=== PATIENT | female | born 1945 | race Caucasian/White ===

== ENCOUNTER 2020-12-18 09:21 | Inpatient (IN) | payer MEDICARE, BC ==
[2020-12-18] MEDS ORDERED: Ondansetron 4 MG/2 ML SDV IVPUSH ONE (09:53)
[2020-12-18] MEDS ORDERED: Sodium Chloride 0.9% 10 ML Syringe FLUSH PRN (09:53)
[2020-12-18] MEDS ORDERED: Albuterol/Ipratropium 3.0-0.5 MG/3 ML Neb Soln NEB ONE (09:54)
[2020-12-18] MEDS ORDERED: EPINEPHrine 1 MG/ML SDV IM PRN (09:55)
[2020-12-18] MEDS ORDERED: Famotidine 20 MG/2 ML SDV IVPUSH PRN (09:55)
[2020-12-18] MEDS ORDERED: Bamlanivimab 700 MG, ETESEVIMAB 1,400 MG in Sodium Chloride 0.9% 100 ML IV ONE (09:55)
[2020-12-18] MEDS ORDERED: methylPREDNISolone Sodium Succinate 125 MG/2 ML SDV IVPUSH PRN (09:55)
[2020-12-18] MEDS ORDERED: diphenhydrAMINE 50 MG/ML SDV IVPUSH PRN (09:55)
[2020-12-18] MEDS ORDERED: Sodium Chloride 0.9% 10 ML Syringe FLUSH SCH (10:00)
[2020-12-18] MEDS ORDERED: Sodium Chloride 0.9% 1,000 ML IV SCH ×2 (10:00→16:45)
--- NOTE | 2020-12-18 11:00 | EDM.PDOC ---
ED HPI GENERAL MEDICAL PROBLEM - General Chief Complaint: Respiratory Problem Stated Complaint: COVID+ SOB Time Seen by Provider: 12/18/20 09:29 Source of Information: Reports: Patient History Limitations: Reports: No Limitations - History of Present Illness INITIAL COMMENTS - FREE TEXT/NARRATIVE: The patient presents with COVID 19, nausea, generalized weakness and shortness of breath. She said this all started on Tuesday and she tested positive for COVID 19. She has no fever or chills any more but she has nausea and cannot eat or drink anything. She has no diarrhea. She has a cough and she is short of breath. She has no chest pain. She has a history of diabetes, hypertension and COPD. She does not smoke anymore. She is not vaccinated for COVID 19. Onset: Gradual Duration: Day(s): (4) Severity: Moderate Improves with: Reports: None Worsens with: Reports: None Associated Symptoms: Reports: Cough, Fever/Chills, Nausea/Vomiting, Shortness of Breath. Denies: Chest Pain, Headaches - Related Data Allergies Allergy/AdvReac Type Severity Reaction Status Date / Time Sulfa (Sulfonamide Allergy Swelling Verified 01/28/16 03:31 Antibiotics) Home Meds: Home Meds ALPRAZolam [Alprazolam] 1 tab PO DAILY PRN 01/28/16 [History] Albuterol [Proair HFA] 2 puff INH Q4H PRN 01/28/16 [History] Aspirin 81 mg PO DAILY 01/28/16 [History] Fluticasone Propion/Salmeterol [Advair 250-50 Diskus] 1 ampule INH DAILY 01/28/16 [History] Potassium Chloride [Klor-Con M20] 20 meq PO DAILY 01/28/16 [History] atenoloL [Atenolol] 1 tab PO DAILY 01/28/16 [History] Past Medical History Cardiovascular History: Reports: Heart Failure, Hypertension Respiratory History: Reports: COPD Psychiatric History: Reports: Anxiety - Infectious Disease History Infectious Disease History: Reports: Novel Coronavirus Social & Family History - Caffeine Use Caffeine Use: Reports: Coffee ED ROS GENERAL - Review of Systems Review Of Systems: See Below Constitutional: Reports: Fever, Chills, Malaise, Weakness, Fatigue HEENT: Reports: No Symptoms Respiratory: Reports: Shortness of Breath, Cough Cardiovascular: Reports: No Symptoms Endocrine: Reports: Fatigue GI/Abdominal: Reports: Nausea, Vomiting. Denies: Abdominal Pain, Diarrhea : Reports: No Symptoms Musculoskeletal: Reports: No Symptoms ED EXAM, GENERAL - Physical Exam Exam: See Below Exam Limited By: No Limitations General Appearance: Alert, No Apparent Distress Ears: Normal External Exam Nose: Normal Inspection Head: Atraumatic, Normocephalic Neck: Normal Inspection Respiratory/Chest: No Respiratory Distress, Decreased Breath Sounds Cardiovascular: Regular Rate, Rhythm, No Edema, No Murmur GI/Abdominal: Soft, Non-Tender, No Organomegaly, No Mass Back Exam: Normal Inspection Extremities: Normal Inspection Course - Vital Signs Last Recorded V/S: Last Vital Signs Temp 96.6 F L 12/18/20 09:38 Pulse 84 12/18/20 09:38 Resp 24 H 12/18/20 09:38 BP 148/73 H 12/18/20 09:38 Pulse Ox 84 L 12/18/20 10:30 - Orders/Labs/Meds Orders: Active Orders 24 hr Category Date Time Status Cardiac Monitoring [RC] . DIRECTED Care 12/18/20 09:53 Active Oxygen Therapy [RC] PRN Care 12/18/20 09:53 Active Peripheral IV Care [RC] . DIRECTED Care 12/18/20 09:53 Active RT Aerosol Therapy [RC] ASDIRECTED Care 12/18/20 09:55 Active EPINEPHrine [Adrenalin] Med 12/18/20 09:55 Active 0.3 mg IM ASDIRECTED PRN Famotidine [Pepcid] Med 12/18/20 09:55 Active 20 mg IVPUSH ASDIRECTED PRN Sodium Chloride 0.9% [Normal Saline] 1,000 ml Med 12/18/20 10:00 Active IV .BOLUS Sodium Chloride 0.9% [Saline Flush] Med 12/18/20 09:53 Active 10 ml FLUSH ASDIRECTED PRN Sodium Chloride 0.9% [Saline Flush] Med 12/18/20 10:00 Active 30 ml FLUSH ASDIRECTED diphenhydrAMINE [Benadryl] Med 12/18/20 09:55 Active 50 mg IVPUSH ASDIRECTED PRN methylPREDNISolone Sod Succ [Solu-MEDROL] Med 12/18/20 09:55 Active 125 mg IVPUSH ASDIRECTED PRN ED Antiemetic Medication Reflex [OM.PC] Stat Oth 12/18/20 09:54 Ordered Peripheral IV Insertion Adult [OM.PC] Stat Oth 12/18/20 09:53 Ordered Medication Orders Diphenhydramine HCl (Diphenhydramine 50 Mg/Ml Sdv) 50 mg IVPUSH ASDIRECTED PRN PRN Reason: hypersensitivity reaction Epinephrine HCl (Epinephrine 1 Mg/Ml Sdv) 0.3 mg IM ASDIRECTED PRN PRN Reason: hypersensitivity reaction Famotidine (Famotidine 20 Mg/2 Ml Sdv) 20 mg IVPUSH ASDIRECTED PRN PRN Reason: hypersensitivity reaction Sodium Chloride (Normal Saline) 1,000 mls @ 1,000 mls/hr IV .BOLUS FORMERLY [facility], [facility]–1983 Last Admin: 12/18/20 10:05 Dose: 1,000 mls/hr Documented by: TOMMY Methylprednisolone Sodium Succinate (Methylprednisolone Sodium Succinate 125 Mg/2 Ml Sdv) 125 mg IVPUSH ASDIRECTED PRN PRN Reason: hypersensitivity reaction Sodium Chloride (Sodium Chloride 0.9% 10 Ml Syringe) 10 ml FLUSH ASDIRECTED PRN PRN Reason: Keep Vein Open Sodium Chloride (Sodium Chloride 0.9% 10 Ml Syringe) 30 ml FLUSH ASDIRECTED KAYE Labs: Laboratory Tests 12/18/20 12/18/20 12/18/20 Range/Units 10:05 10:05 10:05 WBC 3.08 L (3.98-10.04) K/mm3 RBC 4.67 (3.98-5.22) M/mm3 Hgb 13.9 (11.2-15.7) gm/dl Hct 39.4 (34.1-44.9) % MCV 84.4 D (79.4-94.8) fl MCH 29.8 (25.6-32.2) pg MCHC 35.3 (32.2-35.5) g/dl RDW Std Deviation 39.6 (36.4-46.3) fL Plt Count 165 L D (182-369) K/mm3 MPV 9.7 (9.4-12.3) fl Neut % (Auto) 67.3 (34.0-71.1) % Lymph % (Auto) 19.8 (19.3-51.7) % Sawyer % (Auto) 12.3 (4.7-12.5) % Eos % (Auto) 0 L (0.7-5.8) Baso % (Auto) 0.3 (0.1-1.2) % Neut # (Auto) 2.07 (1.56-6.13) K/mm3 Lymph # (Auto) 0.61 L (1.18-3.74) K/mm3 Sawyer # (Auto) 0.38 H (0.24-0.36) K/mm3 Eos # (Auto) 0.00 L (0.04-0.36) K/mm3 Baso # (Auto) 0.01 (0.01-0.08) K/mm3 PT 10.5 (9.7-12.0) SECONDS INR 0.94 APTT 33.3 H (21.7-31.4) SECONDS D-Dimer, Quantitative 0.72 H (0.19-0.50) mg/L Sodium 117 L* D (136-145) mEq/L Potassium 3.6 (3.5-5.1) mEq/L Chloride 80 L D (98-107) mEq/L Carbon Dioxide 28 (21-32) mEq/L Anion Gap 12.6 (5-15) BUN 10 (7-18) mg/dL Creatinine 0.8 (0.55-1.02) mg/dL Est Cr Clr Drug Dosing 48.06 mL/min Estimated GFR (MDRD) > 60 (>60) mL/min BUN/Creatinine Ratio 12.5 L (14-18) Glucose 136 H (70-99) mg/dL Lactic Acid (0.4-2.0) mmol/L Calcium 7.8 L (8.5-10.1) mg/dL Total Bilirubin 0.3 (0.2-1.0) mg/dL AST 136 H (15-37) U/L ALT 86 H (14-59) U/L Alkaline Phosphatase 80 (46-116) U/L C-Reactive Protein 2.4 H* (<1.0) mg/dL Total Protein 6.6 (6.4-8.2) g/dl Albumin 3.3 L (3.4-5.0) g/dl Globulin 3.3 gm/dL Albumin/Globulin Ratio 1.0 (1-2) 12/18/21 Range/Units 10:05 WBC (3.98-10.04) K/mm3 RBC (3.98-5.22) M/mm3 Hgb (11.2-15.7) gm/dl Hct (34.1-44.9) % MCV (79.4-94.8) fl MCH (25.6-32.2) pg MCHC (32.2-35.5) g/dl RDW Std Deviation (36.4-46.3) fL Plt Count (182-369) K/mm3 MPV (9.4-12.3) fl Neut % (Auto) (34.0-71.1) % Lymph % (Auto) (19.3-51.7) % Sawyer % (Auto) (4.7-12.5) % Eos % (Auto) (0.7-5.8) Baso % (Auto) (0.1-1.2) % Neut # (Auto) (1.56-6.13) K/mm3 Lymph # (Auto) (1.18-3.74) K/mm3 Sawyer # (Auto) (0.24-0.36) K/mm3 Eos # (Auto) (0.04-0.36) K/mm3 Baso # (Auto) (0.01-0.08) K/mm3 PT (9.7-12.0) SECONDS INR APTT (21.7-31.4) SECONDS D-Dimer, Quantitative (0.19-0.50) mg/L Sodium (136-145) mEq/L Potassium (3.5-5.1) mEq/L Chloride (98-107) mEq/L Carbon Dioxide (21-32) mEq/L Anion Gap (5-15) BUN (7-18) mg/dL Creatinine (0.55-1.02) mg/dL Est Cr Clr Drug Dosing mL/min Estimated GFR (MDRD) (>60) mL/min BUN/Creatinine Ratio (14-18) Glucose (70-99) mg/dL Lactic Acid 1.4 (0.4-2.0) mmol/L Calcium (8.5-10.1) mg/dL Total Bilirubin (0.2-1.0) mg/dL AST (15-37) U/L ALT (14-59) U/L Alkaline Phosphatase (46-116) U/L C-Reactive Protein (<1.0) mg/dL Total Protein (6.4-8.2) g/dl Albumin (3.4-5.0) g/dl Globulin gm/dL Albumin/Globulin Ratio (1-2) Meds: Medications Generic Name Dose Route Start Last Admin Trade Name Freq PRN Reason Stop Dose Admin Diphenhydramine HCl 50 mg 12/18/20 09:55 Diphenhydramine 50 Mg/Ml Sdv IVPUSH ASDIRECTED PRN hypersensitivity reaction Epinephrine HCl 0.3 mg 12/18/20 09:55 Epinephrine 1 Mg/Ml Sdv IM ASDIRECTED PRN hypersensitivity reaction Famotidine 20 mg 12/18/20 09:55 Famotidine 20 Mg/2 Ml Sdv IVPUSH ASDIRECTED PRN hypersensitivity reaction Sodium Chloride 1,000 mls @ 1,000 mls/hr 12/18/20 10:00 12/18/20 10:05 Normal Saline IV 1,000 mls/hr .BOLUS KAYE Administration Methylprednisolone Sodium Succinate 125 mg 12/18/20 09:55 Methylprednisolone Sodium Succinate 125 Mg/2 Ml Sdv IVPUSH ASDIRECTED PRN hypersensitivity reaction Sodium Chloride 10 ml 12/18/20 09:53 Sodium Chloride 0.9% 10 Ml Syringe FLUSH ASDIRECTED PRN Keep Vein Open Sodium Chloride 30 ml 12/18/20 10:00 Sodium Chloride 0.9% 10 Ml Syringe FLUSH ASDIRECTED KAYE Discontinued Medications Generic Name Dose Route Start Last Admin Trade Name Rudolphq PRN Reason Stop Dose Admin Albuterol/Ipratropium 3 ml 12/18/20 09:54 12/18/20 10:07 Albuterol/Ipratropium 3.0-0.5 Mg/3 Ml Neb Soln NEB 12/18/20 09:55 3 ml ONETIME ONE Administration Bamlanivimab 700 mg/ 160 mls @ 310 mls/hr 12/18/20 09:55 12/18/20 10:25 Etesevimab 1,400 mg/ Sodium IV 12/18/20 10:25 310 mls/hr Chloride ONETIME ONE Administration Ondansetron HCl 4 mg 12/18/20 09:53 12/18/20 10:06 Ondansetron 4 Mg/2 Ml Sdv IVPUSH 12/18/20 09:54 4 mg ONETIME ONE Administration - Re-Assessments/Exams Free Text/Narrative Re-Assessment/Exam: 12/18/20 11:00 I ordered oxygen PRN, IV NS 1l bolus, zofran 4mg IV, duoneb, bamlamivimab, CXR and labs. I spoke with the patient to provide information about bamlanivimab treatment. I offered them the Patient and Caregiver JAINarendra bamlanivimab Fact Sheet to read and review. I stated the drug has been approved by an emergency use authorization (EUA} process and has not fully been FDA reviewed or approved. The patient meets the EUA requirements. I discussed there are other potential treatment options that are currently not FDA approved to treat COVID 19. Offered opportunity to ask questions and all questions were answered. The patient voiced understanding and agreed to proceed with treatment. 12/18/20 12:10 Her CXR looks good. Her oxygen did drop so my nurse put her on some oxygen. Her WBC was low at 3.08. Her platelets were low at 165. Her PTT was elevated at 33.3. Her D-dimer was elevated at 0.72 consistent with COVID pneumonia. Her lactic acid is normal. 12/18/20 12:12 Her Na was low at 117 with a low chloride of80. Her AST was elevated at 136. Her ALT was elevated at 86. Her CR is elevated at 2.4. I talked to the patient and she feels better. I told her that her sodium is low at 117 and she needs to be admitted. She does not want to be admitted. I took her off of her oxygen and her oxygen level went down to 87%. 12/18/20 13:30 I put the oxygen back on and I talked to her about being admitted again. Her and son talked to her and they convinced her to be admitted. I talked to our hospitalist Dr Epstein and he accepted the patient. Departure - Departure Time of Disposition: 13:35 Disposition: Home, Self-Care 01 Condition: Serious Clinical Impression: COVID-19, Hypoxia, Hyponatremia - Discharge Information Referrals: Leah Hay MD [Primary Care Provider] - Forms: ED Department Discharge Sepsis Event Note (ED) - Evaluation Sepsis Screening Result: No Definite Risk - Focused Exam Vital Signs: Vital Signs Temp Pulse Resp BP Pulse Ox Pulse Ox 12/18/20 10:30 84 L 12/18/20 10:05 89 L 12/18/20 09:38 96.6 F L 84 24 H 148/73 H - My Orders Last 24 Hours: My Active Orders 12/18/20 09:53 Cardiac Monitoring [RC] . DIRECTED Oxygen Therapy [RC] PRN Peripheral IV Care [RC] . DIRECTED Sodium Chloride 0.9% [Saline Flush] 10 ml FLUSH ASDIRECTED PRN Peripheral IV Insertion Adult [OM.PC] Stat 12/18/20 09:54 ED Antiemetic Medication Reflex [OM.PC] Stat 12/18/20 09:55 RT Aerosol Therapy [RC] ASDIRECTED EPINEPHrine [Adrenalin] 0.3 mg IM ASDIRECTED PRN Famotidine [Pepcid] 20 mg IVPUSH ASDIRECTED PRN diphenhydrAMINE [Benadryl] 50 mg IVPUSH ASDIRECTED PRN methylPREDNISolone Sod Succ [Solu-MEDROL] 125 mg IVPUSH ASDIRECTED PRN 12/18/20 10:00 Sodium Chloride 0.9% [Normal Saline] 1,000 ml IV .BOLUS Sodium Chloride 0.9% [Saline Flush] 30 ml FLUSH ASDIRECTED - Assessment/Plan Last 24 Hours: My Active Orders 12/18/20 09:53 Cardiac Monitoring [RC] . DIRECTED Oxygen Therapy [RC] PRN Peripheral IV Care [RC] . DIRECTED Sodium Chloride 0.9% [Saline Flush] 10 ml FLUSH ASDIRECTED PRN Peripheral IV Insertion Adult [OM.PC] Stat 12/18/20 09:54 ED Antiemetic Medication Reflex [OM.PC] Stat 12/18/20 09:55 RT Aerosol Therapy [RC] ASDIRECTED EPINEPHrine [Adrenalin] 0.3 mg IM ASDIRECTED PRN Famotidine [Pepcid] 20 mg IVPUSH ASDIRECTED PRN diphenhydrAMINE [Benadryl] 50 mg IVPUSH ASDIRECTED PRN methylPREDNISolone Sod Succ [Solu-MEDROL] 125 mg IVPUSH ASDIRECTED PRN 12/18/20 10:00 Sodium Chloride 0.9% [Normal Saline] 1,000 ml IV .BOLUS Sodium Chloride 0.9% [Saline Flush] 30 ml FLUSH ASDIRECTED
--- NOTE | 2020-12-18 11:17 | CR ---
Chest: Portable view of the chest was obtained. Comparison: Prior chest x-ray of 01/28/16. Heart size and mediastinum are within normal limits. When compared to prior chest x-ray, lungs are clear with no acute parenchymal change. Bony structures show nothing acute. Impression: 1. Nothing acute is seen on portable chest x-ray. Diagnostic code #1
--- NOTE | 2020-12-18 14:59 | PCM.HP.2 ---
H&P History of Present Illness - General Date of Service: 12/18/20 Admit Problem/Dx: Admission Diagnosis/Problem Admission Diagnosis/Problem acute respiratory failure associated with COVID-19. Source of Information: Patient History Limitations: Reports: No Limitations - History of Present Illness Initial Comments - Free Text/Narative: Patient is a 75-year-old lady who had presented to the emergency department with shortness of breath, generalized weakness and nausea. She tested positive for COVID-19 4 days ago. The patient does not normally use oxygen at home. The johnny bauer says that she has a loss of appetite. She has had some fever and chills. Patient also has a history of diabetes, hypertension and COPD. Patient had not been vaccinated. Patient had no specific aggravating or relieving factors. The patient has no other complaints. Onset of Symptoms: Reports: Gradual Duration of Symptoms: Reports: Day(s):, Getting Worse Location: Reports: Chest, Generalized Quality: Reports: Ache, Dull Severity: Mild Improves with: Reports: Rest Worsens with: Reports: Breathing, Other (Activity) Associated Symptoms: Reports: Cough, Fever/Chills. Denies: Headaches - Related Data Allergies/Adverse Reactions: Allergies Allergy/AdvReac Type Severity Reaction Status Date / Time Sulfa (Sulfonamide Allergy Swelling Verified 01/28/16 03:31 Antibiotics) Home Medications: Home Meds ALPRAZolam [Alprazolam] 0.25 mg PO DAILY PRN 01/28/16 [History] Albuterol [Proair HFA] 2 puff INH Q4H PRN 01/28/16 [History] Aspirin 81 mg PO DAILY 01/28/16 [History] Potassium Chloride [Klor-Con M20] 20 meq PO DAILY 01/28/16 [History] atenoloL [Atenolol] 25 mg PO DAILY 01/28/16 [History] Ascorbate Calcium [Vitamin C] 500 mg PO DAILY 12/18/20 [History] Ergocalciferol (Vitamin D2) [Vitamin D2] 50,000 unit PO WEEKLY 12/18/20 [History] Fluticasone/Vilanterol [Breo Ellipta 200-25 MCG Inhalation Kit] 1 puff INH DAILY 12/18/20 [History] Furosemide 20 mg PO DAILY 12/18/20 [History] Ipratropium/Albuterol Sulfate [Iprat-Albut 0.5-3(2.5) mg/3 ml] 1 unit INH Q4H PRN 12/18/20 [History] Multivitamin 1 tab PO DAILY 12/18/20 [History] metFORMIN HCl [Metformin HCl] 500 mg PO BIDMEALS 12/18/20 [History] Past Medical History HEENT History: Reports: None Cardiovascular History: Reports: Heart Failure, Hypertension Respiratory History: Reports: COPD Gastrointestinal History: Reports: None Genitourinary History: Reports: None Musculoskeletal History: Reports: None Neurological History: Reports: None Psychiatric History: Reports: Anxiety Endocrine/Metabolic History: Reports: Diabetes, Type II Hematologic History: Reports: None Immunologic History: Reports: None Oncologic (Cancer) History: Reports: None Dermatologic History: Reports: None - Infectious Disease History Infectious Disease History: Reports: Novel Coronavirus Social & Family History - Tobacco Use Tobacco Use Status *Q: Never Tobacco User - Caffeine Use Caffeine Use: Reports: Coffee - Living Situation & Occupation Living situation: Reports: , with Spouse Occupation: Retired H&P Review of Systems - Review of Systems: Review Of Systems: See Below General: Reports: Weakness, Fatigue HEENT: Reports: No Symptoms Pulmonary: Reports: Shortness of Breath, Cough Cardiovascular: Reports: No Symptoms Gastrointestinal: Reports: Nausea Genitourinary: Reports: No Symptoms Musculoskeletal: Reports: No Symptoms Skin: Reports: No Symptoms Psychiatric: Reports: No Symptoms Neurological: Reports: No Symptoms Hematologic/Lymphatic: Reports: No Symptoms Immunologic: Reports: No Symptoms Exam - Exam Exam: See Below - Vital Signs Vital Signs: Last Vital Signs Temp 35.9 C L 12/18/20 09:38 Pulse 84 12/18/20 09:38 Resp 24 H 12/18/20 09:38 BP 148/73 H 12/18/20 09:38 Pulse Ox 84 L 12/18/20 10:30 Weight: 74.843 kg - Exam Quality Assessment: Supplemental Oxygen, DVT Prophylaxis General: Alert, Oriented, Cooperative, Mild Distress HEENT: Conjunctiva Clear, EACs Clear, EOMI, Mucosa Moist & [place], PERRLA Neck: Supple, Trachea Midline Lungs: Normal Respiratory Effort, Crackles Cardiovascular: Regular Rate, Regular Rhythm GI/Abdominal Exam: Normal Bowel Sounds, Soft, Non-Tender, No Distention (Female) Exam: Deferred Rectal (Female) Exam: Deferred Back Exam: Normal Inspection, Full Range of Motion Extremities: Normal Inspection, Normal Range of Motion, No Pedal Edema Skin: Warm, Dry, Intact Neurological: Cranial Nerves Intact, Strength Equal Bilateral, Normal Gait, Normal Speech Neuro Extensive - Mental Status: Alert, Oriented x3 Psychiatric: Alert, Normal Affect, Normal Mood - Patient Data Lab Results Last 24 hrs: Laboratory Results - last 24 hr 12/18/20 12/18/20 12/18/20 Range/Units 10:05 10:05 10:05 WBC 3.08 L (3.98-10.04) K/mm3 RBC 4.67 (3.98-5.22) M/mm3 Hgb 13.9 (11.2-15.7) gm/dl Hct 39.4 (34.1-44.9) % MCV 84.4 D (79.4-94.8) fl MCH 29.8 (25.6-32.2) pg MCHC 35.3 (32.2-35.5) g/dl RDW Std Deviation 39.6 (36.4-46.3) fL Plt Count 165 L D (182-369) K/mm3 MPV 9.7 (9.4-12.3) fl Neut % (Auto) 67.3 (34.0-71.1) % Lymph % (Auto) 19.8 (19.3-51.7) % [place] % (Auto) 12.3 (4.7-12.5) % Eos % (Auto) 0 L (0.7-5.8) Baso % (Auto) 0.3 (0.1-1.2) % Neut # (Auto) 2.07 (1.56-6.13) K/mm3 Lymph # (Auto) 0.61 L (1.18-3.74) K/mm3 [place] # (Auto) 0.38 H (0.24-0.36) K/mm3 Eos # (Auto) 0.00 L (0.04-0.36) K/mm3 Baso # (Auto) 0.01 (0.01-0.08) K/mm3 PT 10.5 (9.7-12.0) SECONDS INR 0.94 APTT 33.3 H (21.7-31.4) SECONDS D-Dimer, Quantitative 0.72 H (0.19-0.50) mg/L Sodium 117 L* D (136-145) mEq/L Potassium 3.6 (3.5-5.1) mEq/L Chloride 80 L D (98-107) mEq/L Carbon Dioxide 28 (21-32) mEq/L Anion Gap 12.6 (5-15) BUN 10 (7-18) mg/dL Creatinine 0.8 (0.55-1.02) mg/dL Est Cr Clr Drug Dosing 48.06 mL/min Estimated GFR (MDRD) > 60 (>60) mL/min BUN/Creatinine Ratio 12.5 L (14-18) Glucose 136 H (70-99) mg/dL Lactic Acid (0.4-2.0) mmol/L Calcium 7.8 L (8.5-10.1) mg/dL Total Bilirubin 0.3 (0.2-1.0) mg/dL AST 136 H (15-37) U/L ALT 86 H (14-59) U/L Alkaline Phosphatase 80 (46-116) U/L C-Reactive Protein 2.4 H* (<1.0) mg/dL Total Protein 6.6 (6.4-8.2) g/dl Albumin 3.3 L (3.4-5.0) g/dl Globulin 3.3 gm/dL Albumin/Globulin Ratio 1.0 (1-2) 12/18/20 Range/Units 10:05 WBC (3.98-10.04) K/mm3 RBC (3.98-5.22) M/mm3 Hgb (11.2-15.7) gm/dl Hct (34.1-44.9) % MCV (79.4-94.8) fl MCH (25.6-32.2) pg MCHC (32.2-35.5) g/dl RDW Std Deviation (36.4-46.3) fL Plt Count (182-369) K/mm3 MPV (9.4-12.3) fl Neut % (Auto) (34.0-71.1) % Lymph % (Auto) (19.3-51.7) % [place] % (Auto) (4.7-12.5) % Eos % (Auto) (0.7-5.8) Baso % (Auto) (0.1-1.2) % Neut # (Auto) (1.56-6.13) K/mm3 Lymph # (Auto) (1.18-3.74) K/mm3 [place] # (Auto) (0.24-0.36) K/mm3 Eos # (Auto) (0.04-0.36) K/mm3 Baso # (Auto) (0.01-0.08) K/mm3 PT (9.7-12.0) SECONDS INR APTT (21.7-31.4) SECONDS D-Dimer, Quantitative (0.19-0.50) mg/L Sodium (136-145) mEq/L Potassium (3.5-5.1) mEq/L Chloride (98-107) mEq/L Carbon Dioxide (21-32) mEq/L Anion Gap (5-15) BUN (7-18) mg/dL Creatinine (0.55-1.02) mg/dL Est Cr Clr Drug Dosing mL/min Estimated GFR (MDRD) (>60) mL/min BUN/Creatinine Ratio (14-18) Glucose (70-99) mg/dL Lactic Acid 1.4 (0.4-2.0) mmol/L Calcium (8.5-10.1) mg/dL Total Bilirubin (0.2-1.0) mg/dL AST (15-37) U/L ALT (14-59) U/L Alkaline Phosphatase (46-116) U/L C-Reactive Protein (<1.0) mg/dL Total Protein (6.4-8.2) g/dl Albumin (3.4-5.0) g/dl Globulin gm/dL Albumin/Globulin Ratio (1-2) Result Diagrams: 12/18/20 10:05 12/18/20 10:05 Sepsis Event Note - Evaluation Sepsis Screening Result: No Definite Risk - Focused Exam Vital Signs: Vital Signs Temp Pulse Resp BP Pulse Ox Pulse Ox 12/18/20 10:30 84 L 12/18/20 10:05 89 L 12/18/20 09:38 35.9 C L 84 24 H 148/73 H - Problem List (1) Acute respiratory failure due to COVID-19 SNOMED Code(s): 741315883 ICD Code: U07.1 - COVID-19; J96.00 - ACUTE RESPIRATORY FAILURE, UNSP W HYPOXIA OR HYPERCAPNIA Status: Acute Priority: High Current Visit: Yes (2) Hyponatremia SNOMED Code(s): 58298297 ICD Code: E87.1 - HYPO-OSMOLALITY AND HYPONATREMIA Status: Acute Priority: High Current Visit: Yes (3) COVID-19 SNOMED Code(s): 926530075 ICD Code: U07.1 - COVID-19 Status: Acute Priority: High Current Visit: Yes (4) Hypertension SNOMED Code(s): 85727535 ICD Code: I10 - ESSENTIAL (PRIMARY) HYPERTENSION Status: Chronic Priority: High Current Visit: Yes Qualifiers: Hypertension type: primary hypertension Qualified Code(s): I10 - Essential (primary) hypertension Problem List Initiated/Reviewed/Updated: Yes Orders Last 24hrs: Active Orders 24 hr Category Date Time Status Patient Status [ADT] Routine ADT 12/18/20 14:10 Active Cardiac Monitoring [RC] . DIRECTED Care 12/18/20 09:53 Active Oxygen Therapy [RC] PRN Care 12/18/20 09:53 Active Peripheral IV Care [RC] . DIRECTED Care 12/18/20 09:53 Active RT Aerosol Therapy [RC] ASDIRECTED Care 12/18/20 09:55 Active EPINEPHrine [Adrenalin] Med 12/18/20 09:55 Active 0.3 mg IM ASDIRECTED PRN Famotidine [Pepcid] Med 12/18/20 09:55 Active 20 mg IVPUSH ASDIRECTED PRN Sodium Chloride 0.9% [Normal Saline] 1,000 ml Med 12/18/20 10:00 Active IV .BOLUS Sodium Chloride 0.9% [Saline Flush] Med 12/18/20 09:53 Active 10 ml FLUSH ASDIRECTED PRN Sodium Chloride 0.9% [Saline Flush] Med 12/18/20 10:00 Active 30 ml FLUSH ASDIRECTED diphenhydrAMINE [Benadryl] Med 12/18/20 09:55 Active 50 mg IVPUSH ASDIRECTED PRN methylPREDNISolone Sod Succ [Solu-MEDROL] Med 12/18/20 09:55 Active 125 mg IVPUSH ASDIRECTED PRN ED Antiemetic Medication Reflex [OM.PC] Stat Oth 12/18/20 09:54 Ordered Peripheral IV Insertion Adult [OM.PC] Stat Oth 12/18/20 09:53 Ordered Medication Orders Diphenhydramine HCl (Diphenhydramine 50 Mg/Ml Sdv) 50 mg IVPUSH ASDIRECTED PRN PRN Reason: hypersensitivity reaction Epinephrine HCl (Epinephrine 1 Mg/Ml Sdv) 0.3 mg IM ASDIRECTED PRN PRN Reason: hypersensitivity reaction Famotidine (Famotidine 20 Mg/2 Ml Sdv) 20 mg IVPUSH ASDIRECTED PRN PRN Reason: hypersensitivity reaction Sodium Chloride (Normal Saline) 1,000 mls @ 1,000 mls/hr IV .BOLUS [facility] Last Admin: 12/18/20 10:05 Dose: 1,000 mls/hr Documented by: TOMMY Methylprednisolone Sodium Succinate (Methylprednisolone Sodium Succinate 125 Mg/2 Ml Sdv) 125 mg IVPUSH ASDIRECTED PRN PRN Reason: hypersensitivity reaction Sodium Chloride (Sodium Chloride 0.9% 10 Ml Syringe) 10 ml FLUSH ASDIRECTED PRN PRN Reason: Keep Vein Open Sodium Chloride (Sodium Chloride 0.9% 10 Ml Syringe) 30 ml FLUSH ASDIRECTED KAYE Assessment/Plan Comment:: The patient is a 75-year-old lady who had been admitted primarily out of concern for acute respiratory failure with hypoxia associated with COVID-19. The patient was also noted to have a sodium of 117 mEq/L and this will require slow correction. The patient admits that she has been only drinking fluids for the past several days and this is likely a dilution the patient also has a history of anxiety she has been started on her home dose of Xanax 0.25 mg p.o. daily. Because of the patient's history of COPD I have elected to place the patient on a azithromycin as treatment for possible COPD exacerbation as well. She is on dexamethasone 6 mg p.o. daily. I have also started the patient on remdesivir. This will be 100 mg IV starting tomorrow. The patient will have DVT prophylaxis with the use of Lovenox 40 mg subcutaneous daily. She is to have a carb constant diet as tolerated. I have also placed the patient on insulin sliding scale low-dose. She is on Metformin and this will be continued as she did not have CT scan of her chest with contrast. The patient should be appropriate for discharge upon completion of medications. - Mortality Measure Prognosis:: Good
[2020-12-18] MEDS ORDERED: ALPRAZolam 0.25 MG Tab PO PRN (15:41)
[2020-12-18] MEDS ORDERED: Morphine 2 MG/ML SYRINGE IVPUSH PRN (15:42)
[2020-12-18] MEDS ORDERED: Ondansetron 4 MG Tab.DIS PO PRN (15:42)
[2020-12-18] MEDS ORDERED: Docusate Sodium 100 MG Cap PO PRN (15:42)
[2020-12-18] MEDS ORDERED: oxyCODONE 5 MG Tab PO PRN (15:42)
[2020-12-18] MEDS ORDERED: Acetaminophen 325 MG Tab PO PRN (15:42)
[2020-12-18] MEDS ORDERED: Insulin Regular, Human 100 Units/ML 3 ML Vial SUBCUT SCH (16:00)
[2020-12-18] MEDS: Dexamethasone 4 MG Tab PO SCH (16:52)
[2020-12-18] MEDS: Azithromycin 500 MG in Sodium Chloride 0.9% 250 ML IV SCH (16:53)
[2020-12-18] MEDS: metFORMIN 500 MG Tab PO SCH (16:53)
[2020-12-18] MEDS ORDERED: REMDESIVIR 200 MG in Sodium Chloride 0.9% 250 ML IV ONE (17:00)
[2020-12-18] MEDS: Formoterol/Mometasone 200-5 MCG 8.8 GM Inhaler IH SCH (20:46)
[2020-12-19] MEDS: Albuterol/Ipratropium 3.0-0.5 MG/3 ML Neb Soln NEB PRN (03:45)
[2020-12-19] MEDS: metFORMIN 500 MG Tab PO SCH ×2 (06:00→16:36)
[2020-12-19] MEDS: Formoterol/Mometasone 200-5 MCG 8.8 GM Inhaler IH SCH ×2 (08:44→21:20)
[2020-12-19] MEDS: Insulin Regular, Human 100 Units/ML 3 ML Vial SUBCUT SCH ×2 (08:53→17:31)
[2020-12-19] MEDS: Furosemide 20 MG Tab PO SCH (08:54)
[2020-12-19] MEDS: Enoxaparin 40 MG/0.4 ML Syringe SUBCUT SCH (08:54)
[2020-12-19] MEDS: Aspirin 81 MG Tab.Chew PO SCH (08:54)
[2020-12-19] MEDS: Potassium Chloride 20 MEQ Tab.ER PO SCH (08:54)
[2020-12-19] MEDS: Dexamethasone 4 MG Tab PO SCH (08:54)
[2020-12-19] MEDS: Atenolol 25 MG Tab PO SCH (08:55)
--- NOTE | 2020-12-19 08:59 | PCM.PN ---
- General Info Date of Service: 12/19/20 Admission Dx/Problem (Free Text): Admission Diagnosis/Problem Admission Diagnosis/Problem acute respiratory failure associated with COVID-19. Subjective Update: The patient is a 75-year-old lady who was admitted to acute hospitalization yesterday secondary to acute respiratory failure associated with COVID-19. The patient also had a vasovagal episode while sitting in the chair yesterday. No injury. She recovered quickly from this. The patient has denied any tenderness or lightheadedness. Her breathing is better. The patient also has been tolerating her diet. Functional Status: Reports: Pain Controlled, Tolerating Diet. Denies: New Symptoms - Review of Systems General: Reports: No Symptoms HEENT: Reports: No Symptoms Pulmonary: Reports: Cough Cardiovascular: Reports: No Symptoms Gastrointestinal: Reports: No Symptoms Genitourinary: Reports: No Symptoms Musculoskeletal: Reports: No Symptoms Skin: Reports: No Symptoms Neurological: Reports: No Symptoms Psychiatric: Reports: No Symptoms - Patient Data Vitals - Most Recent: Last Vital Signs Temp 36.4 C 12/19/20 03:42 Pulse 74 12/19/20 08:55 Resp 18 12/19/20 03:42 BP 136/67 12/19/20 08:55 Pulse Ox 93 L 12/19/20 08:44 Weight - Most Recent: 76.657 kg I&O - Last 24 Hours: Intake & Output 12/18/20 12/19/20 12/19/20 22:59 06:59 14:59 Intake Total 140 1396 Output Total 1000 Balance 140 396 Lab Results Last 24 Hours: Laboratory Results - last 24 hr 12/18/20 12/18/20 12/18/20 Range/Units 10:05 10:05 10:05 WBC 3.08 L (3.98-10.04) K/mm3 RBC 4.67 (3.98-5.22) M/mm3 Hgb 13.9 (11.2-15.7) gm/dl Hct 39.4 (34.1-44.9) % MCV 84.4 D (79.4-94.8) fl MCH 29.8 (25.6-32.2) pg MCHC 35.3 (32.2-35.5) g/dl RDW Std Deviation 39.6 (36.4-46.3) fL Plt Count 165 L D (182-369) K/mm3 MPV 9.7 (9.4-12.3) fl Neut % (Auto) 67.3 (34.0-71.1) % Lymph % (Auto) 19.8 (19.3-51.7) % [place] % (Auto) 12.3 (4.7-12.5) % Eos % (Auto) 0 L (0.7-5.8) Baso % (Auto) 0.3 (0.1-1.2) % Neut # (Auto) 2.07 (1.56-6.13) K/mm3 Lymph # (Auto) 0.61 L (1.18-3.74) K/mm3 [place] # (Auto) 0.38 H (0.24-0.36) K/mm3 Eos # (Auto) 0.00 L (0.04-0.36) K/mm3 Baso # (Auto) 0.01 (0.01-0.08) K/mm3 Manual Slide Review PT 10.5 (9.7-12.0) SECONDS INR 0.94 APTT 33.3 H (21.7-31.4) SECONDS D-Dimer, Quantitative 0.72 H (0.19-0.50) mg/L Sodium 117 L* D (136-145) mEq/L Potassium 3.6 (3.5-5.1) mEq/L Chloride 80 L D (98-107) mEq/L Carbon Dioxide 28 (21-32) mEq/L Anion Gap 12.6 (5-15) BUN 10 (7-18) mg/dL Creatinine 0.8 (0.55-1.02) mg/dL Est Cr Clr Drug Dosing 48.06 mL/min Estimated GFR (MDRD) > 60 (>60) mL/min BUN/Creatinine Ratio 12.5 L (14-18) Glucose 136 H (70-99) mg/dL POC Glucose (70-99) mg/dL Lactic Acid (0.4-2.0) mmol/L Calcium 7.8 L (8.5-10.1) mg/dL Magnesium (1.8-2.4) mg/dL Total Bilirubin 0.3 (0.2-1.0) mg/dL AST 136 H (15-37) U/L ALT 86 H (14-59) U/L Alkaline Phosphatase 80 (46-116) U/L C-Reactive Protein 2.4 H* (<1.0) mg/dL Total Protein 6.6 (6.4-8.2) g/dl Albumin 3.3 L (3.4-5.0) g/dl Globulin 3.3 gm/dL Albumin/Globulin Ratio 1.0 (1-2) 12/18/20 12/18/20 12/19/20 Range/Units 10:05 16:56 05:04 WBC (3.98-10.04) K/mm3 RBC (3.98-5.22) M/mm3 Hgb (11.2-15.7) gm/dl Hct (34.1-44.9) % MCV (79.4-94.8) fl MCH (25.6-32.2) pg MCHC (32.2-35.5) g/dl RDW Std Deviation (36.4-46.3) fL Plt Count (182-369) K/mm3 MPV (9.4-12.3) fl Neut % (Auto) (34.0-71.1) % Lymph % (Auto) (19.3-51.7) % [place] % (Auto) (4.7-12.5) % Eos % (Auto) (0.7-5.8) Baso % (Auto) (0.1-1.2) % Neut # (Auto) (1.56-6.13) K/mm3 Lymph # (Auto) (1.18-3.74) K/mm3 [place] # (Auto) (0.24-0.36) K/mm3 Eos # (Auto) (0.04-0.36) K/mm3 Baso # (Auto) (0.01-0.08) K/mm3 Manual Slide Review PT (9.7-12.0) SECONDS INR APTT (21.7-31.4) SECONDS D-Dimer, Quantitative (0.19-0.50) mg/L Sodium (136-145) mEq/L Potassium (3.5-5.1) mEq/L Chloride (98-107) mEq/L Carbon Dioxide (21-32) mEq/L Anion Gap (5-15) BUN (7-18) mg/dL Creatinine (0.55-1.02) mg/dL Est Cr Clr Drug Dosing mL/min Estimated GFR (MDRD) (>60) mL/min BUN/Creatinine Ratio (14-18) Glucose (70-99) mg/dL POC Glucose 133 H 154 H (70-99) mg/dL Lactic Acid 1.4 (0.4-2.0) mmol/L Calcium (8.5-10.1) mg/dL Magnesium (1.8-2.4) mg/dL Total Bilirubin (0.2-1.0) mg/dL AST (15-37) U/L ALT (14-59) U/L Alkaline Phosphatase (46-116) U/L C-Reactive Protein (<1.0) mg/dL Total Protein (6.4-8.2) g/dl Albumin (3.4-5.0) g/dl Globulin gm/dL Albumin/Globulin Ratio (1-2) 12/19/20 12/19/20 12/19/20 Range/Units 05:05 05:05 05:05 WBC 1.73 L* (3.98-10.04) K/mm3 RBC 4.47 (3.98-5.22) M/mm3 Hgb 13.2 (11.2-15.7) gm/dl Hct 38.7 (34.1-44.9) % MCV 86.6 (79.4-94.8) fl MCH 29.5 (25.6-32.2) pg MCHC 34.1 (32.2-35.5) g/dl RDW Std Deviation 40.9 (36.4-46.3) fL Plt Count 170 L (182-369) K/mm3 MPV 9.8 (9.4-12.3) fl Neut % (Auto) 61.3 (34.0-71.1) % Lymph % (Auto) 21.4 (19.3-51.7) % [place] % (Auto) 17.3 H (4.7-12.5) % Eos % (Auto) 0 L (0.7-5.8) Baso % (Auto) 0.0 L (0.1-1.2) % Neut # (Auto) 1.06 L (1.56-6.13) K/mm3 Lymph # (Auto) 0.37 L (1.18-3.74) K/mm3 [place] # (Auto) 0.30 (0.24-0.36) K/mm3 Eos # (Auto) 0.00 L (0.04-0.36) K/mm3 Baso # (Auto) 0.00 L (0.01-0.08) K/mm3 Manual Slide Review Abnormal smear PT (9.7-12.0) SECONDS INR APTT (21.7-31.4) SECONDS D-Dimer, Quantitative 0.79 H (0.19-0.50) mg/L Sodium 131 L D (136-145) mEq/L Potassium 3.6 (3.5-5.1) mEq/L Chloride 94 L D (98-107) mEq/L Carbon Dioxide 24 (21-32) mEq/L Anion Gap 16.6 H (5-15) BUN 8 (7-18) mg/dL Creatinine 0.7 (0.55-1.02) mg/dL Est Cr Clr Drug Dosing 54.92 mL/min Estimated GFR (MDRD) > 60 (>60) mL/min BUN/Creatinine Ratio 11.4 L (14-18) Glucose 175 H (70-99) mg/dL POC Glucose (70-99) mg/dL Lactic Acid (0.4-2.0) mmol/L Calcium 7.7 L (8.5-10.1) mg/dL Magnesium 1.8 (1.8-2.4) mg/dL Total Bilirubin 0.1 L (0.2-1.0) mg/dL AST 143 H (15-37) U/L ALT 91 H (14-59) U/L Alkaline Phosphatase 72 (46-116) U/L C-Reactive Protein 2.2 H* (<1.0) mg/dL Total Protein 6.3 L (6.4-8.2) g/dl Albumin 3.0 L (3.4-5.0) g/dl Globulin 3.3 gm/dL Albumin/Globulin Ratio 0.9 L (1-2) Med Orders - Current: Current Medications Acetaminophen (Acetaminophen 325 Mg Tab) 650 mg PO Q4H PRN PRN Reason: Pain (Mild 1-3)/fever Albuterol/Ipratropium (Albuterol/Ipratropium 3.0-0.5 Mg/3 Ml Neb Soln) 3 ml NEB Q4H PRN PRN Reason: Shortness Of Breath/wheezing Last Admin: 12/19/20 03:45 Dose: 3 ml Documented by: Alprazolam (Alprazolam 0.25 Mg Tab) 0.25 mg PO DAILY PRN PRN Reason: Anxiety Aspirin (Aspirin 81 Mg Tab.Chew) 81 mg PO DAILY [facility] Last Admin: 12/19/20 08:54 Dose: 81 mg Documented by: Atenolol (Atenolol 25 Mg Tab) 25 mg PO DAILY [facility] Last Admin: 12/19/20 08:55 Dose: 25 mg Documented by: Dexamethasone (Dexamethasone 4 Mg Tab) 6 mg PO DAILY [facility] Last Admin: 12/19/20 08:54 Dose: 6 mg Documented by: Docusate Sodium (Docusate Sodium 100 Mg Cap) 100 mg PO BID PRN PRN Reason: Constipation Enoxaparin Sodium (Enoxaparin 40 Mg/0.4 Ml Syringe) 40 mg SUBCUT DAILY [facility] Last Admin: 12/19/20 08:54 Dose: 40 mg Documented by: Furosemide (Furosemide 20 Mg Tab) 20 mg PO DAILY [facility] Last Admin: 12/19/20 08:54 Dose: 20 mg Documented by: Azithromycin 500 mg/ Sodium (Chloride) 250 mls @ 250 mls/hr IV Q24H [facility] Last Admin: 12/18/20 16:53 Dose: 250 mls/hr Documented by: Remdesivir 100 mg/ Sodium (Chloride) 100 mls @ 100 mls/hr IV Q24H [facility] Stop: 12/22/20 17:59 Insulin Human Regular (Insulin Regular, Human 100 Units/Ml 3 Ml Vial) 0 unit SUBCUT BID@0700,1700 [facility]; Protocol Last Admin: 12/19/20 08:53 Dose: 1 unit Documented by: Metformin HCl (Metformin 500 Mg Tab) 500 mg PO BIDMEALS [facility] Last Admin: 12/19/20 06:00 Dose: 500 mg Documented by: Mometasone Furoate/Formoterol Fumar (Formoterol/Mometasone 200-5 Mcg 8.8 Gm Inhaler) 2 puff IH BID [facility] Last Admin: 12/19/20 08:44 Dose: 2 puff Documented by: Morphine Sulfate (Morphine 2 Mg/Ml Syringe) 2 mg IVPUSH Q2H PRN PRN Reason: Pain (severe 7-10) Stop: 12/19/20 15:43 Ondansetron HCl (Ondansetron 4 Mg Tab.Dis) 4 mg PO Q4H PRN PRN Reason: nausea, able to take PO Oxycodone HCl (Oxycodone 5 Mg Tab) 5 mg PO Q4H PRN PRN Reason: Pain (moderate 4-6) Potassium Chloride (Potassium Chloride 20 Meq Tab.Er) 20 meq PO DAILY [facility] Last Admin: 12/19/20 08:54 Dose: 20 meq Documented by: Sodium Chloride (Sodium Chloride 0.9% 10 Ml Syringe) 10 ml FLUSH ASDIRECTED PRN PRN Reason: Keep Vein Open Sodium Chloride (Sodium Chloride 0.9% 10 Ml Syringe) 30 ml FLUSH ASDIRECTED [facility] Discontinued Medications Albuterol/Ipratropium (Albuterol/Ipratropium 3.0-0.5 Mg/3 Ml Neb Soln) 3 ml NEB ONETIME ONE Stop: 12/18/20 09:55 Last Admin: 12/18/20 10:07 Dose: 3 ml Documented by: Diphenhydramine HCl (Diphenhydramine 50 Mg/Ml Sdv) 50 mg IVPUSH ASDIRECTED PRN PRN Reason: hypersensitivity reaction Epinephrine HCl (Epinephrine 1 Mg/Ml Sdv) 0.3 mg IM ASDIRECTED PRN PRN Reason: hypersensitivity reaction Famotidine (Famotidine 20 Mg/2 Ml Sdv) 20 mg IVPUSH ASDIRECTED PRN PRN Reason: hypersensitivity reaction Sodium Chloride (Normal Saline) 1,000 mls @ 1,000 mls/hr IV .BOLUS [facility] Last Admin: 12/18/20 10:05 Dose: 1,000 mls/hr Documented by: Bamlanivimab 700 mg/Etesevimab 1,400 mg/ Sodium Chloride 160 mls @ 310 mls/hr IV ONETIME ONE Stop: 12/18/20 10:25 Last Admin: 12/18/20 10:25 Dose: 310 mls/hr Documented by: Remdesivir 200 mg/ Sodium (Chloride) 250 mls @ 250 mls/hr IV ONETIME ONE Stop: 12/18/20 17:59 Last Admin: 12/18/20 16:53 Dose: 250 mls/hr Documented by: Sodium Chloride (Normal Saline) 1,000 mls @ 100 mls/hr IV ASDIRECTED [facility] Last Admin: 12/18/20 16:54 Dose: 100 mls/hr Documented by: Insulin Human Regular (Insulin Regular, Human 100 Units/Ml 3 Ml Vial) 0 unit SUBCUT BIDAC [facility]; Protocol Last Admin: 12/18/20 16:57 Dose: Not Given Documented by: Methylprednisolone Sodium Succinate (Methylprednisolone Sodium Succinate 125 Mg/2 Ml Sdv) 125 mg IVPUSH ASDIRECTED PRN PRN Reason: hypersensitivity reaction Ondansetron HCl (Ondansetron 4 Mg/2 Ml Sdv) 4 mg IVPUSH ONETIME ONE Stop: 12/18/20 09:54 Last Admin: 12/18/20 10:06 Dose: 4 mg Documented by: - Exam Quality Assessment: Supplemental Oxygen, DVT Prophylaxis General: Alert, Oriented, Cooperative, No Acute Distress HEENT: Pupils Equal, Pupils Reactive, EOMI Neck: Supple, Trachea Midline Lungs: Normal Respiratory Effort, Rales Cardiovascular: Regular Rate, Regular Rhythm GI/Abdominal Exam: Normal Bowel Sounds, Soft, No Distention (Female) Exam: Deferred Back Exam: Normal Inspection, Full Range of Motion Extremities: Normal Inspection, No Pedal Edema Skin: Warm, Dry, Intact Neurological: No New Focal Deficit, Normal Gait, Normal Speech Psy/Mental Status: Alert, Normal Affect, Normal Mood - Patient Data Lab Results Last 24 hrs: Laboratory Results - last 24 hr 12/18/20 12/18/20 12/18/20 Range/Units 10:05 10:05 10:05 WBC 3.08 L (3.98-10.04) K/mm3 RBC 4.67 (3.98-5.22) M/mm3 Hgb 13.9 (11.2-15.7) gm/dl Hct 39.4 (34.1-44.9) % MCV 84.4 D (79.4-94.8) fl MCH 29.8 (25.6-32.2) pg MCHC 35.3 (32.2-35.5) g/dl RDW Std Deviation 39.6 (36.4-46.3) fL Plt Count 165 L D (182-369) K/mm3 MPV 9.7 (9.4-12.3) fl Neut % (Auto) 67.3 (34.0-71.1) % Lymph % (Auto) 19.8 (19.3-51.7) % [place] % (Auto) 12.3 (4.7-12.5) % Eos % (Auto) 0 L (0.7-5.8) Baso % (Auto) 0.3 (0.1-1.2) % Neut # (Auto) 2.07 (1.56-6.13) K/mm3 Lymph # (Auto) 0.61 L (1.18-3.74) K/mm3 [place] # (Auto) 0.38 H (0.24-0.36) K/mm3 Eos # (Auto) 0.00 L (0.04-0.36) K/mm3 Baso # (Auto) 0.01 (0.01-0.08) K/mm3 Manual Slide Review PT 10.5 (9.7-12.0) SECONDS INR 0.94 APTT 33.3 H (21.7-31.4) SECONDS D-Dimer, Quantitative 0.72 H (0.19-0.50) mg/L Sodium 117 L* D (136-145) mEq/L Potassium 3.6 (3.5-5.1) mEq/L Chloride 80 L D (98-107) mEq/L Carbon Dioxide 28 (21-32) mEq/L Anion Gap 12.6 (5-15) BUN 10 (7-18) mg/dL Creatinine 0.8 (0.55-1.02) mg/dL Est Cr Clr Drug Dosing 48.06 mL/min Estimated GFR (MDRD) > 60 (>60) mL/min BUN/Creatinine Ratio 12.5 L (14-18) Glucose 136 H (70-99) mg/dL POC Glucose (70-99) mg/dL Lactic Acid (0.4-2.0) mmol/L Calcium 7.8 L (8.5-10.1) mg/dL Magnesium (1.8-2.4) mg/dL Total Bilirubin 0.3 (0.2-1.0) mg/dL AST 136 H (15-37) U/L ALT 86 H (14-59) U/L Alkaline Phosphatase 80 (46-116) U/L C-Reactive Protein 2.4 H* (<1.0) mg/dL Total Protein 6.6 (6.4-8.2) g/dl Albumin 3.3 L (3.4-5.0) g/dl Globulin 3.3 gm/dL Albumin/Globulin Ratio 1.0 (1-2) 12/18/20 12/18/20 12/19/20 Range/Units 10:05 16:56 05:04 WBC (3.98-10.04) K/mm3 RBC (3.98-5.22) M/mm3 Hgb (11.2-15.7) gm/dl Hct (34.1-44.9) % MCV (79.4-94.8) fl MCH (25.6-32.2) pg MCHC (32.2-35.5) g/dl RDW Std Deviation (36.4-46.3) fL Plt Count (182-369) K/mm3 MPV (9.4-12.3) fl Neut % (Auto) (34.0-71.1) % Lymph % (Auto) (19.3-51.7) % [place] % (Auto) (4.7-12.5) % Eos % (Auto) (0.7-5.8) Baso % (Auto) (0.1-1.2) % Neut # (Auto) (1.56-6.13) K/mm3 Lymph # (Auto) (1.18-3.74) K/mm3 [place] # (Auto) (0.24-0.36) K/mm3 Eos # (Auto) (0.04-0.36) K/mm3 Baso # (Auto) (0.01-0.08) K/mm3 Manual Slide Review PT (9.7-12.0) SECONDS INR APTT (21.7-31.4) SECONDS D-Dimer, Quantitative (0.19-0.50) mg/L Sodium (136-145) mEq/L Potassium (3.5-5.1) mEq/L Chloride (98-107) mEq/L Carbon Dioxide (21-32) mEq/L Anion Gap (5-15) BUN (7-18) mg/dL Creatinine (0.55-1.02) mg/dL Est Cr Clr Drug Dosing mL/min Estimated GFR (MDRD) (>60) mL/min BUN/Creatinine Ratio (14-18) Glucose (70-99) mg/dL POC Glucose 133 H 154 H (70-99) mg/dL Lactic Acid 1.4 (0.4-2.0) mmol/L Calcium (8.5-10.1) mg/dL Magnesium (1.8-2.4) mg/dL Total Bilirubin (0.2-1.0) mg/dL AST (15-37) U/L ALT (14-59) U/L Alkaline Phosphatase (46-116) U/L C-Reactive Protein (<1.0) mg/dL Total Protein (6.4-8.2) g/dl Albumin (3.4-5.0) g/dl Globulin gm/dL Albumin/Globulin Ratio (1-2) 12/19/20 12/19/20 12/19/20 Range/Units 05:05 05:05 05:05 WBC 1.73 L* (3.98-10.04) K/mm3 RBC 4.47 (3.98-5.22) M/mm3 Hgb 13.2 (11.2-15.7) gm/dl Hct 38.7 (34.1-44.9) % MCV 86.6 (79.4-94.8) fl MCH 29.5 (25.6-32.2) pg MCHC 34.1 (32.2-35.5) g/dl RDW Std Deviation 40.9 (36.4-46.3) fL Plt Count 170 L (182-369) K/mm3 MPV 9.8 (9.4-12.3) fl Neut % (Auto) 61.3 (34.0-71.1) % Lymph % (Auto) 21.4 (19.3-51.7) % [place] % (Auto) 17.3 H (4.7-12.5) % Eos % (Auto) 0 L (0.7-5.8) Baso % (Auto) 0.0 L (0.1-1.2) % Neut # (Auto) 1.06 L (1.56-6.13) K/mm3 Lymph # (Auto) 0.37 L (1.18-3.74) K/mm3 [place] # (Auto) 0.30 (0.24-0.36) K/mm3 Eos # (Auto) 0.00 L (0.04-0.36) K/mm3 Baso # (Auto) 0.00 L (0.01-0.08) K/mm3 Manual Slide Review Abnormal smear PT (9.7-12.0) SECONDS INR APTT (21.7-31.4) SECONDS D-Dimer, Quantitative 0.79 H (0.19-0.50) mg/L Sodium 131 L D (136-145) mEq/L Potassium 3.6 (3.5-5.1) mEq/L Chloride 94 L D (98-107) mEq/L Carbon Dioxide 24 (21-32) mEq/L Anion Gap 16.6 H (5-15) BUN 8 (7-18) mg/dL Creatinine 0.7 (0.55-1.02) mg/dL Est Cr Clr Drug Dosing 54.92 mL/min Estimated GFR (MDRD) > 60 (>60) mL/min BUN/Creatinine Ratio 11.4 L (14-18) Glucose 175 H (70-99) mg/dL POC Glucose (70-99) mg/dL Lactic Acid (0.4-2.0) mmol/L Calcium 7.7 L (8.5-10.1) mg/dL Magnesium 1.8 (1.8-2.4) mg/dL Total Bilirubin 0.1 L (0.2-1.0) mg/dL AST 143 H (15-37) U/L ALT 91 H (14-59) U/L Alkaline Phosphatase 72 (46-116) U/L C-Reactive Protein 2.2 H* (<1.0) mg/dL Total Protein 6.3 L (6.4-8.2) g/dl Albumin 3.0 L (3.4-5.0) g/dl Globulin 3.3 gm/dL Albumin/Globulin Ratio 0.9 L (1-2) Result Diagrams: 12/19/20 05:05 12/19/20 05:05 Sepsis Event Note - Evaluation Sepsis Screening Result: No Definite Risk - Focused Exam Vital Signs: Vital Signs Temp Pulse Resp BP Pulse Ox Pulse Ox 12/19/20 08:55 74 136/67 12/19/20 08:44 93 L 12/19/20 03:45 92 L 12/19/20 03:42 36.4 C 74 18 125/58 L 96 12/19/20 00:38 36.4 C 12/19/20 00:37 81 22 H 142/61 H 94 L - Problem List & Annotations (1) Acute respiratory failure due to COVID-19 SNOMED Code(s): 563028935 Code(s): U07.1 - COVID-19; J96.00 - ACUTE RESPIRATORY FAILURE, UNSP W HYPOXIA OR HYPERCAPNIA Status: Acute Priority: High Current Visit: Yes (2) Hyponatremia SNOMED Code(s): 59081738 Code(s): E87.1 - HYPO-OSMOLALITY AND HYPONATREMIA Status: Acute Priority: High Current Visit: Yes (3) COVID-19 SNOMED Code(s): 574132424 Code(s): U07.1 - COVID-19 Status: Acute Priority: High Current Visit: Yes (4) Hypertension SNOMED Code(s): 71713036 Code(s): I10 - ESSENTIAL (PRIMARY) HYPERTENSION Status: Chronic Priority: High Current Visit: Yes Qualifiers: Hypertension type: primary hypertension Qualified Code(s): I10 - Essential (primary) hypertension - Problem List Review Problem List Initiated/Reviewed/Updated: Yes - My Orders Last 24 Hours: My Active Orders 12/18/20 15:09 Code Status [Resuscitation Status] Routine 12/18/20 15:41 ALPRAZolam [Xanax] 0.25 mg PO DAILY PRN 12/18/20 15:42 Blood Glucose Check, Bedside [RC] TIDAC Cardiac Monitoring [RC] .PRN Oxygen Therapy [RC] PRN Up ad Norma [RC] ASDIRECTED VTE/DVT Education [RC] PER UNIT ROUTINE Vital Signs [RC] Q4HR Acetaminophen [TylenoL] 650 mg PO Q4H PRN Albuterol/Ipratropium [DuoNeb 3.0-0.5 MG/3 ML] 3 ml NEB Q4H PRN Docusate Sodium [Colace] 100 mg PO BID PRN Morphine 2 mg IVPUSH Q2H PRN Ondansetron [Zofran ODT] 4 mg PO Q4H PRN oxyCODONE 5 mg PO Q4H PRN 12/18/20 15:43 RT Aerosol Therapy [RC] ASDIRECTED 12/18/20 16:00 Azithromycin [Zithromax] 500 mg Sodium Chloride 0.9% [Normal Saline AdvBag] 250 ml IV Q24H dexAMETHasone 6 mg PO DAILY 12/18/20 Dinner Consistent Carbohydrate Diet [DIET] metFORMIN [Glucophage] 500 mg PO BIDMEALS 12/18/20 21:00 Mometasone/Formoterol [Dulera 200-5 MCG] 2 puff IH BID 12/19/20 07:00 Insulin Regular, Human [HumuLIN R] 0 unit SUBCUT BID@0700,1700 12/19/20 09:00 Aspirin 81 mg PO DAILY Enoxaparin [Lovenox] 40 mg SUBCUT DAILY Furosemide [Lasix] 20 mg PO DAILY Potassium Chloride [Klor-Con M20] 20 meq PO DAILY atenoloL [Tenormin] 25 mg PO DAILY 12/19/20 17:00 Remdesivir 100 mg Sodium Chloride 0.9% [Normal Saline] 100 ml IV Q24H - Plan Plan:: The patient is a 75-year-old lady who had been admitted primarily out of concern for acute respiratory failure with hypoxia associated with COVID-19. The patient was also noted to have a sodium of 117 mEq/L and this will require slow correction. The patient admits that she has been only drinking fluids for the past several days and this is likely a dilution the patient also has a history of anxiety she has been started on her home dose of Xanax 0.25 mg p.o. daily. Because of the patient's history of COPD I have elected to place the patient on a azithromycin as treatment for possible COPD exacerbation as well. She is on dexamethasone 6 mg p.o. daily. I have also started the patient on remdesivir. This will be 100 mg IV starting tomorrow. The patient will have DVT prophylaxis with the use of Lovenox 40 mg subcutaneous daily. She is to have a carb cons tant diet as tolerated. I have also placed the patient on insulin sliding scale low-dose. She is on Metformin and this will be continued as she did not have CT scan of her chest with contrast. The patient should be appropriate for discharge upon completion of medications. 12/19/2020 Patient is a 75-year-old lady who had been admitted due to acute respiratory failure due to COVID-19 pneumonia. She was also admitted for hyponatremia which was thought to be due to dilutional effect. The patient has been fluid resuscitated. She has had some improvement of her hyponatremia. The patient has been able to eat more and her sodium is almost normalized. The patient will continue on her diabetic diet as tolerated. She is also on Metformin and this will continue. The patient has sliding scale insulin low-dose. She is to have Accu-Cheks before meals and at bedtime. Repeat laboratory studies have been ordered for the morning. The patient is using a azithromycin for bacterial superinfection and possible COPD exacerbation and this may be discontinued soon. She is on dexamethasone and remdesivir in both these will continue and she will need to be on dexamethasone after discharge. Repeat laboratory studies have been ordered. The patient has been encouraged to ambulate.
[2020-12-19] MEDS: Azithromycin 500 MG in Sodium Chloride 0.9% 250 ML IV SCH (15:11)
[2020-12-19] MEDS: REMDESIVIR 100 MG in Sodium Chloride 0.9% 100 ML IV SCH (16:28)
[2020-12-19 17:18] LABS: HEMOGLOBIN A1C 7.4 %
[2020-12-20] MEDS: metFORMIN 500 MG Tab PO SCH (06:04)
[2020-12-20] MEDS: Insulin Regular, Human 100 Units/ML 3 ML Vial SUBCUT SCH ×2 (06:19→17:57)
[2020-12-20] MEDS: Enoxaparin 40 MG/0.4 ML Syringe SUBCUT SCH (08:25)
[2020-12-20] MEDS: Atenolol 25 MG Tab PO SCH (08:26)
[2020-12-20] MEDS: Furosemide 20 MG Tab PO SCH (08:26)
[2020-12-20] MEDS: Dexamethasone 4 MG Tab PO SCH (08:26)
[2020-12-20] MEDS: Aspirin 81 MG Tab.Chew PO SCH (08:26)
[2020-12-20] MEDS: Potassium Chloride 20 MEQ Tab.ER PO SCH (08:26)
[2020-12-20] MEDS: Formoterol/Mometasone 200-5 MCG 8.8 GM Inhaler IH SCH ×2 (08:42→20:27)
[2020-12-20] MEDS: Carboxymethylcellulose Sodium 1% Ophth Gel 15 ML Bottle EYEBOTH PRN ×2 (09:17→23:06)
--- NOTE | 2020-12-20 10:00 | PCM.PN ---
- General Info Date of Service: 12/20/20 Admission Dx/Problem (Free Text): Admission Diagnosis/Problem Admission Diagnosis/Problem acute respiratory failure associated with COVID-19. Subjective Update: The patient is a 75-year-old lady who was admitted to acute hospitalization secondary to acute respiratory failure due to COVID-19 pneumonia. Today the patient says that she feels better. She has been breathing better. The patient says that she has been tolerating her diet. She is denied any new pain. She is having concerns with dry eyes. Functional Status: Reports: Pain Controlled, Tolerating Diet, New Symptoms (Dry eyes) - Review of Systems General: Reports: No Symptoms HEENT: Reports: No Symptoms Pulmonary: Reports: Cough Cardiovascular: Reports: No Symptoms Gastrointestinal: Reports: No Symptoms Genitourinary: Reports: No Symptoms Musculoskeletal: Reports: No Symptoms Skin: Reports: No Symptoms Neurological: Reports: No Symptoms Psychiatric: Reports: No Symptoms - Patient Data Vitals - Most Recent: Last Vital Signs Temp 36.4 C 12/20/20 08:02 Pulse 72 12/20/20 08:26 Resp 18 12/20/20 08:02 BP 119/82 12/20/20 08:26 Pulse Ox 96 12/20/20 08:43 Weight - Most Recent: 76.521 kg I&O - Last 24 Hours: Intake & Output 12/19/20 12/20/20 12/20/20 22:59 06:59 14:59 Intake Total 1440 800 Output Total 950 700 Balance 490 100 Lab Results Last 24 Hours: Laboratory Results - last 24 hr 12/19/20 12/19/20 12/19/20 Range/Units 05:05 12:13 16:35 WBC (3.98-10.04) K/mm3 RBC (3.98-5.22) M/mm3 Hgb (11.2-15.7) gm/dl Hct (34.1-44.9) % MCV (79.4-94.8) fl MCH (25.6-32.2) pg MCHC (32.2-35.5) g/dl RDW Std Deviation (36.4-46.3) fL Plt Count (182-369) K/mm3 MPV (9.4-12.3) fl Neut % (Auto) (34.0-71.1) % Lymph % (Auto) (19.3-51.7) % Porter % (Auto) (4.7-12.5) % Eos % (Auto) (0.7-5.8) Baso % (Auto) (0.1-1.2) % Neut # (Auto) (1.56-6.13) K/mm3 Lymph # (Auto) (1.18-3.74) K/mm3 Porter # (Auto) (0.24-0.36) K/mm3 Eos # (Auto) (0.04-0.36) K/mm3 Baso # (Auto) (0.01-0.08) K/mm3 Sodium (136-145) mEq/L Potassium (3.5-5.1) mEq/L Chloride (98-107) mEq/L Carbon Dioxide (21-32) mEq/L Anion Gap (5-15) BUN (7-18) mg/dL Creatinine (0.55-1.02) mg/dL Est Cr Clr Drug Dosing mL/min Estimated GFR (MDRD) (>60) mL/min BUN/Creatinine Ratio (14-18) Glucose (70-99) mg/dL POC Glucose 143 H 150 H (70-99) mg/dL Hemoglobin A1c 7.4 H ( - 5.6) % Calcium (8.5-10.1) mg/dL Magnesium (1.8-2.4) mg/dL Total Bilirubin (0.2-1.0) mg/dL AST (15-37) U/L ALT (14-59) U/L Alkaline Phosphatase (46-116) U/L C-Reactive Protein (<1.0) mg/dL Total Protein (6.4-8.2) g/dl Albumin (3.4-5.0) g/dl Globulin gm/dL Albumin/Globulin Ratio (1-2) 12/20/20 12/20/20 Range/Units 05:46 05:46 WBC 3.94 L (3.98-10.04) K/mm3 RBC 3.98 (3.98-5.22) M/mm3 Hgb 11.7 D (11.2-15.7) gm/dl Hct 35.5 (34.1-44.9) % MCV 89.2 (79.4-94.8) fl MCH 29.4 (25.6-32.2) pg MCHC 33.0 (32.2-35.5) g/dl RDW Std Deviation 44.0 (36.4-46.3) fL Plt Count 195 (182-369) K/mm3 MPV 9.6 (9.4-12.3) fl Neut % (Auto) 64.8 (34.0-71.1) % Lymph % (Auto) 17.3 L (19.3-51.7) % Porter % (Auto) 17.3 H (4.7-12.5) % Eos % (Auto) 0 L (0.7-5.8) Baso % (Auto) 0.3 (0.1-1.2) % Neut # (Auto) 2.56 (1.56-6.13) K/mm3 Lymph # (Auto) 0.68 L (1.18-3.74) K/mm3 Porter # (Auto) 0.68 H (0.24-0.36) K/mm3 Eos # (Auto) 0.00 L (0.04-0.36) K/mm3 Baso # (Auto) 0.01 (0.01-0.08) K/mm3 Sodium 134 L (136-145) mEq/L Potassium 3.8 (3.5-5.1) mEq/L Chloride 98 (98-107) mEq/L Carbon Dioxide 29 (21-32) mEq/L Anion Gap 10.8 (5-15) BUN 18 (7-18) mg/dL Creatinine 0.8 (0.55-1.02) mg/dL Est Cr Clr Drug Dosing 48.06 mL/min Estimated GFR (MDRD) > 60 (>60) mL/min BUN/Creatinine Ratio 22.5 H (14-18) Glucose 109 H (70-99) mg/dL POC Glucose (70-99) mg/dL Hemoglobin A1c ( - 5.6) % Calcium 7.9 L (8.5-10.1) mg/dL Magnesium 1.8 (1.8-2.4) mg/dL Total Bilirubin 0.1 L (0.2-1.0) mg/dL AST 84 H (15-37) U/L ALT 72 H (14-59) U/L Alkaline Phosphatase 58 (46-116) U/L C-Reactive Protein 0.6 (<1.0) mg/dL Total Protein 5.3 L (6.4-8.2) g/dl Albumin 2.7 L (3.4-5.0) g/dl Globulin 2.6 gm/dL Albumin/Globulin Ratio 1.0 (1-2) Med Orders - Current: Current Medications Acetaminophen (Acetaminophen 325 Mg Tab) 650 mg PO Q4H PRN PRN Reason: Pain (Mild 1-3)/fever Albuterol/Ipratropium (Albuterol/Ipratropium 3.0-0.5 Mg/3 Ml Neb Soln) 3 ml NEB Q4H PRN PRN Reason: Shortness Of Breath/wheezing Last Admin: 12/19/20 03:45 Dose: 3 ml Documented by: Alprazolam (Alprazolam 0.25 Mg Tab) 0.25 mg PO DAILY PRN PRN Reason: Anxiety Artificial Tears (Carboxymethylcellulose Sodium 1% Ophth Gel 15 Ml Bottle) 0 ml EYEBOTH Q6H PRN PRN Reason: Dry Eyes Last Admin: 12/20/20 09:17 Dose: 1 drop Documented by: Aspirin (Aspirin 81 Mg Tab.Chew) 81 mg PO DAILY [facility] Last Admin: 12/20/20 08:26 Dose: 81 mg Documented by: Atenolol (Atenolol 25 Mg Tab) 25 mg PO DAILY [facility] Last Admin: 12/20/20 08:26 Dose: 25 mg Documented by: Dexamethasone (Dexamethasone 4 Mg Tab) 6 mg PO DAILY [facility] Last Admin: 12/20/20 08:26 Dose: 6 mg Documented by: Docusate Sodium (Docusate Sodium 100 Mg Cap) 100 mg PO BID PRN PRN Reason: Constipation Enoxaparin Sodium (Enoxaparin 40 Mg/0.4 Ml Syringe) 40 mg SUBCUT DAILY [facility] Last Admin: 12/20/20 08:25 Dose: 40 mg Documented by: Furosemide (Furosemide 20 Mg Tab) 20 mg PO DAILY [facility] Last Admin: 12/20/20 08:26 Dose: 20 mg Documented by: Azithromycin 500 mg/ Sodium (Chloride) 250 mls @ 250 mls/hr IV Q24H [facility] Last Admin: 12/19/20 15:11 Dose: 250 mls/hr Documented by: Remdesivir 100 mg/ Sodium (Chloride) 100 mls @ 100 mls/hr IV Q24H [facility] Stop: 12/22/20 17:59 Last Admin: 12/19/20 16:28 Dose: 100 mls/hr Documented by: Insulin Human Regular (Insulin Regular, Human 100 Units/Ml 3 Ml Vial) 0 unit SUBCUT BID@0700,1700 [facility]; Protocol Last Admin: 12/20/20 06:19 Dose: Not Given Documented by: Metformin HCl (Metformin 500 Mg Tab) 500 mg PO BIDMEALS [facility] Last Admin: 12/20/20 06:04 Dose: 500 mg Documented by: Mometasone Furoate/Formoterol Fumar (Formoterol/Mometasone 200-5 Mcg 8.8 Gm Inhaler) 2 puff IH BID [facility] Last Admin: 12/20/20 08:42 Dose: 2 puff Documented by: Ondansetron HCl (Ondansetron 4 Mg Tab.Dis) 4 mg PO Q4H PRN PRN Reason: nausea, able to take PO Oxycodone HCl (Oxycodone 5 Mg Tab) 5 mg PO Q4H PRN PRN Reason: Pain (moderate 4-6) Potassium Chloride (Potassium Chloride 20 Meq Tab.Er) 20 meq PO DAILY [facility] Last Admin: 12/20/20 08:26 Dose: 20 meq Documented by: Sodium Chloride (Sodium Chloride 0.9% 10 Ml Syringe) 10 ml FLUSH ASDIRECTED PRN PRN Reason: Keep Vein Open Sodium Chloride (Sodium Chloride 0.9% 10 Ml Syringe) 30 ml FLUSH ASDIRECTED [facility] Discontinued Medications Albuterol/Ipratropium (Albuterol/Ipratropium 3.0-0.5 Mg/3 Ml Neb Soln) 3 ml NEB ONETIME ONE Stop: 12/18/20 09:55 Last Admin: 12/18/20 10:07 Dose: 3 ml Documented by: Diphenhydramine HCl (Diphenhydramine 50 Mg/Ml Sdv) 50 mg IVPUSH ASDIRECTED PRN PRN Reason: hypersensitivity reaction Epinephrine HCl (Epinephrine 1 Mg/Ml Sdv) 0.3 mg IM ASDIRECTED PRN PRN Reason: hypersensitivity reaction Famotidine (Famotidine 20 Mg/2 Ml Sdv) 20 mg IVPUSH ASDIRECTED PRN PRN Reason: hypersensitivity reaction Sodium Chloride (Normal Saline) 1,000 mls @ 1,000 mls/hr IV .BOLUS [facility] Last Admin: 12/18/20 10:05 Dose: 1,000 mls/hr Documented by: Bamlanivimab 700 mg/Etesevimab 1,400 mg/ Sodium Chloride 160 mls @ 310 mls/hr IV ONETIME ONE Stop: 12/18/20 10:25 Last Admin: 12/18/20 10:25 Dose: 310 mls/hr Documented by: Remdesivir 200 mg/ Sodium (Chloride) 250 mls @ 250 mls/hr IV ONETIME ONE Stop: 12/18/20 17:59 Last Admin: 12/18/20 16:53 Dose: 250 mls/hr Documented by: Sodium Chloride (Normal Saline) 1,000 mls @ 100 mls/hr IV ASDIRECTED [facility] Last Admin: 12/18/20 16:54 Dose: 100 mls/hr Documented by: Insulin Human Regular (Insulin Regular, Human 100 Units/Ml 3 Ml Vial) 0 unit SUBCUT BIDAC [facility]; Protocol Last Admin: 12/18/20 16:57 Dose: Not Given Documented by: Methylprednisolone Sodium Succinate (Methylprednisolone Sodium Succinate 125 Mg/2 Ml Sdv) 125 mg IVPUSH ASDIRECTED PRN PRN Reason: hypersensitivity reaction Morphine Sulfate (Morphine 2 Mg/Ml Syringe) 2 mg IVPUSH Q2H PRN PRN Reason: Pain (severe 7-10) Stop: 12/19/20 15:43 Ondansetron HCl (Ondansetron 4 Mg/2 Ml Sdv) 4 mg IVPUSH ONETIME ONE Stop: 12/18/20 09:54 Last Admin: 12/18/20 10:06 Dose: 4 mg Documented by: - Exam Quality Assessment: Supplemental Oxygen, DVT Prophylaxis General: Alert, Oriented, Cooperative, No Acute Distress HEENT: Pupils Equal, Pupils Reactive, EOMI, Mucous Membr. Moist/[place] Neck: Supple, Trachea Midline Lungs: Clear to Auscultation, Normal Respiratory Effort Cardiovascular: Regular Rate, Regular Rhythm GI/Abdominal Exam: Normal Bowel Sounds, Soft, Non-Tender, No Distention (Female) Exam: Deferred Back Exam: Normal Inspection, Full Range of Motion Extremities: Normal Inspection, No Pedal Edema Skin: Warm, Dry, Intact Neurological: No New Focal Deficit, Normal Gait, Normal Speech Psy/Mental Status: Alert, Normal Affect, Normal Mood - Patient Data Lab Results Last 24 hrs: Laboratory Results - last 24 hr 12/19/20 12/19/20 12/19/20 Range/Units 05:05 12:13 16:35 WBC (3.98-10.04) K/mm3 RBC (3.98-5.22) M/mm3 Hgb (11.2-15.7) gm/dl Hct (34.1-44.9) % MCV (79.4-94.8) fl MCH (25.6-32.2) pg MCHC (32.2-35.5) g/dl RDW Std Deviation (36.4-46.3) fL Plt Count (182-369) K/mm3 MPV (9.4-12.3) fl Neut % (Auto) (34.0-71.1) % Lymph % (Auto) (19.3-51.7) % Porter % (Auto) (4.7-12.5) % Eos % (Auto) (0.7-5.8) Baso % (Auto) (0.1-1.2) % Neut # (Auto) (1.56-6.13) K/mm3 Lymph # (Auto) (1.18-3.74) K/mm3 Porter # (Auto) (0.24-0.36) K/mm3 Eos # (Auto) (0.04-0.36) K/mm3 Baso # (Auto) (0.01-0.08) K/mm3 Sodium (136-145) mEq/L Potassium (3.5-5.1) mEq/L Chloride (98-107) mEq/L Carbon Dioxide (21-32) mEq/L Anion Gap (5-15) BUN (7-18) mg/dL Creatinine (0.55-1.02) mg/dL Est Cr Clr Drug Dosing mL/min Estimated GFR (MDRD) (>60) mL/min BUN/Creatinine Ratio (14-18) Glucose (70-99) mg/dL POC Glucose 143 H 150 H (70-99) mg/dL Hemoglobin A1c 7.4 H ( - 5.6) % Calcium (8.5-10.1) mg/dL Magnesium (1.8-2.4) mg/dL Total Bilirubin (0.2-1.0) mg/dL AST (15-37) U/L ALT (14-59) U/L Alkaline Phosphatase (46-116) U/L C-Reactive Protein (<1.0) mg/dL Total Protein (6.4-8.2) g/dl Albumin (3.4-5.0) g/dl Globulin gm/dL Albumin/Globulin Ratio (1-2) 12/20/20 12/20/20 Range/Units 05:46 05:46 WBC 3.94 L (3.98-10.04) K/mm3 RBC 3.98 (3.98-5.22) M/mm3 Hgb 11.7 D (11.2-15.7) gm/dl Hct 35.5 (34.1-44.9) % MCV 89.2 (79.4-94.8) fl MCH 29.4 (25.6-32.2) pg MCHC 33.0 (32.2-35.5) g/dl RDW Std Deviation 44.0 (36.4-46.3) fL Plt Count 195 (182-369) K/mm3 MPV 9.6 (9.4-12.3) fl Neut % (Auto) 64.8 (34.0-71.1) % Lymph % (Auto) 17.3 L (19.3-51.7) % Porter % (Auto) 17.3 H (4.7-12.5) % Eos % (Auto) 0 L (0.7-5.8) Baso % (Auto) 0.3 (0.1-1.2) % Neut # (Auto) 2.56 (1.56-6.13) K/mm3 Lymph # (Auto) 0.68 L (1.18-3.74) K/mm3 Porter # (Auto) 0.68 H (0.24-0.36) K/mm3 Eos # (Auto) 0.00 L (0.04-0.36) K/mm3 Baso # (Auto) 0.01 (0.01-0.08) K/mm3 Sodium 134 L (136-145) mEq/L Potassium 3.8 (3.5-5.1) mEq/L Chloride 98 (98-107) mEq/L Carbon Dioxide 29 (21-32) mEq/L Anion Gap 10.8 (5-15) BUN 18 (7-18) mg/dL Creatinine 0.8 (0.55-1.02) mg/dL Est Cr Clr Drug Dosing 48.06 mL/min Estimated GFR (MDRD) > 60 (>60) mL/min BUN/Creatinine Ratio 22.5 H (14-18) Glucose 109 H (70-99) mg/dL POC Glucose (70-99) mg/dL Hemoglobin A1c ( - 5.6) % Calcium 7.9 L (8.5-10.1) mg/dL Magnesium 1.8 (1.8-2.4) mg/dL Total Bilirubin 0.1 L (0.2-1.0) mg/dL AST 84 H (15-37) U/L ALT 72 H (14-59) U/L Alkaline Phosphatase 58 (46-116) U/L C-Reactive Protein 0.6 (<1.0) mg/dL Total Protein 5.3 L (6.4-8.2) g/dl Albumin 2.7 L (3.4-5.0) g/dl Globulin 2.6 gm/dL Albumin/Globulin Ratio 1.0 (1-2) Result Diagrams: 12/20/20 05:46 12/20/20 05:46 Sepsis Event Note - Evaluation Sepsis Screening Result: No Definite Risk - Focused Exam Vital Signs: Vital Signs Temp Pulse Resp BP Pulse Ox Pulse Ox 12/20/20 08:43 96 12/20/20 08:26 72 119/82 12/20/20 08:04 72 119/82 98 12/20/20 08:02 36.4 C 63 18 108/46 L 98 12/20/20 03:33 36.5 C 63 20 127/63 93 L 12/20/20 00:20 36.3 C 68 18 106/62 95 12/19/20 22:44 92 L - Problem List & Annotations (1) Acute respiratory failure due to COVID-19 SNOMED Code(s): 046167531 Code(s): U07.1 - COVID-19; J96.00 - ACUTE RESPIRATORY FAILURE, UNSP W HYPOXIA OR HYPERCAPNIA Status: Acute Priority: High Current Visit: Yes (2) Hyponatremia SNOMED Code(s): 39567401 Code(s): E87.1 - HYPO-OSMOLALITY AND HYPONATREMIA Status: Acute Priority: High Current Visit: Yes (3) COVID-19 SNOMED Code(s): 238656553 Code(s): U07.1 - COVID-19 Status: Acute Priority: High Current Visit: Yes (4) Hypertension SNOMED Code(s): 47045643 Code(s): I10 - ESSENTIAL (PRIMARY) HYPERTENSION Status: Chronic Priority: High Current Visit: Yes Qualifiers: Hypertension type: primary hypertension Qualified Code(s): I10 - Essential (primary) hypertension - Problem List Review Problem List Initiated/Reviewed/Updated: Yes - My Orders Last 24 Hours: My Active Orders 12/19/20 Lunch Consistent Carbohydrate Diet [DIET] 12/19/20 17:00 Remdesivir 100 mg Sodium Chloride 0.9% [Normal Saline] 100 ml IV Q24H 12/20/20 08:48 Carboxymethylcellulose Sodium [Refresh Liquigel 1%] 0 ml EYEBOTH Q6H PRN - Plan Plan:: The patient is a 75-year-old lady who had been admitted primarily out of concern for acute respiratory failure with hypoxia associated with COVID-19. The patient was also noted to have a sodium of 117 mEq/L and this will require slow correction. The patient admits that she has been only drinking fluids for the past several days and this is likely a dilution the patient also has a history of anxiety she has been started on her home dose of Xanax 0.25 mg p.o. daily. Because of the patient's history of COPD I have elected to place the patient on a azithromycin as treatment for possible COPD exacerbation as well. She is on dexamethasone 6 mg p.o. daily. I have also started the patient on remdesivir. This will be 100 mg IV starting tomorrow. The patient will have DVT prophylaxis with the use of Lovenox 40 mg subcutaneous daily. She is to have a carb constant diet as tolerated. I have also placed the patient on insulin sliding scale low-dose. She is on Metformin and this will be continued as she did not have CT scan of her chest with contrast. The patient should be appropriate for discharge upon completion of medications. 12/19/2020 Patient is a 75-year-old lady who had been admitted due to acute respiratory failure due to COVID-19 pneumonia. She was also admitted for hyponatremia which was thought to be due to dilutional effect. The patient has been fluid resuscitated. She has had some improvement of her hyponatremia. The patient has been able to eat more and her sodium is almost normalized. The patient will continue on her diabetic diet as tolerated. She is also on Metformin and this w ill continue. The patient has sliding scale insulin low-dose. She is to have Accu-Cheks before meals and at bedtime. Repeat laboratory studies have been ordered for the morning. The patient is using a azithromycin for bacterial superinfection and possible COPD exacerbation and this may be discontinued soon. She is on dexamethasone and remdesivir in both these will continue and she will need to be on dexamethasone after discharge. Repeat laboratory studies have been ordered. The patient has been encouraged to ambulate. 12/20/2020 The patient is a 75-year-old lady who is still in hospitalization for continuation of her remdesivir treatment for her COVID-19. The patient will continue on oxygen titrated to keep her saturations around 92%. The patient is tolerating her diabetic diet. She is on Accu-Cheks and sliding scale low-dose insulin. Repeat laboratory studies have been ordered for the morning. The patient will be continued on her azithromycin and this should be discontinued tomorrow. She has been encouraged to ambulate. The patient's previously critical sodium of 117 mmol/L have improved although still low at 134. This is likely the patient's baseline. She should be appropriate for discharge tomorrow after completion of remdesivir.
[2020-12-20] MEDS: Azithromycin 500 MG in Sodium Chloride 0.9% 250 ML IV SCH (16:01)
[2020-12-20] MEDS: REMDESIVIR 100 MG in Sodium Chloride 0.9% 100 ML IV SCH (17:58)
[2020-12-20] MEDS: Albuterol/Ipratropium 3.0-0.5 MG/3 ML Neb Soln NEB PRN (20:37)
[2020-12-21] MEDS: Formoterol/Mometasone 200-5 MCG 8.8 GM Inhaler IH SCH ×2 (08:35→20:32)
[2020-12-21] MEDS: Aspirin 81 MG Tab.Chew PO SCH (08:36)
[2020-12-21] MEDS: Potassium Chloride 20 MEQ Tab.ER PO SCH (08:36)
[2020-12-21] MEDS: Furosemide 20 MG Tab PO SCH (08:36)
[2020-12-21] MEDS: Atenolol 25 MG Tab PO SCH (08:36)
[2020-12-21] MEDS: Insulin Regular, Human 100 Units/ML 3 ML Vial SUBCUT SCH ×2 (08:37→17:50)
[2020-12-21] MEDS: Dexamethasone 4 MG Tab PO SCH (08:37)
[2020-12-21] MEDS: Enoxaparin 40 MG/0.4 ML Syringe SUBCUT SCH (08:39)
[2020-12-21] MEDS: Carboxymethylcellulose Sodium 1% Ophth Gel 15 ML Bottle EYEBOTH PRN ×2 (08:40→21:13)
[2020-12-21] MEDS: Albuterol/Ipratropium 3.0-0.5 MG/3 ML Neb Soln NEB PRN (09:08)
--- NOTE | 2020-12-21 11:25 | PCM.PN ---
- General Info Date of Service: 12/21/20 Admission Dx/Problem (Free Text): Admission Diagnosis/Problem Admission Diagnosis/Problem acute respiratory failure associated with COVID-19. Subjective Update: The patient is a 75-year-old lady who was admitted to acute hospitalization on December 18, 2020 due to acute respiratory failure from associated COVID-19 pneumonia. The patient today says that she is feeling better. She has been proning. The patient has been using oxygen still. She has been tolerating her diet. She has no other complaints. Functional Status: Reports: Pain Controlled, Tolerating Diet. Denies: New Symptoms - Review of Systems General: Reports: No Symptoms HEENT: Reports: No Symptoms Pulmonary: Reports: Shortness of Breath, Cough Cardiovascular: Reports: No Symptoms Gastrointestinal: Reports: No Symptoms Genitourinary: Reports: No Symptoms Musculoskeletal: Reports: No Symptoms Skin: Reports: No Symptoms Neurological: Reports: No Symptoms Psychiatric: Reports: No Symptoms - Patient Data Vitals - Most Recent: Last Vital Signs Temp 36.8 C 12/21/20 03:55 Pulse 67 12/21/20 08:36 Resp 18 12/21/20 03:55 BP 155/68 H 12/21/20 08:36 Pulse Ox 94 L 12/21/20 09:09 Weight - Most Recent: 75.568 kg I&O - Last 24 Hours: Intake & Output 12/20/20 12/21/20 12/21/20 22:59 06:59 14:59 Intake Total 1395 700 Output Total 950 600 Balance 445 100 Lab Results Last 24 Hours: Laboratory Results - last 24 hr 12/20/20 12/20/20 12/21/20 Range/Units 11:30 17:33 05:17 WBC 4.82 (3.98-10.04) K/mm3 RBC 3.97 L (3.98-5.22) M/mm3 Hgb 11.7 (11.2-15.7) gm/dl Hct 36.1 (34.1-44.9) % MCV 90.9 (79.4-94.8) fl MCH 29.5 (25.6-32.2) pg MCHC 32.4 (32.2-35.5) g/dl RDW Std Deviation 45.0 (36.4-46.3) fL Plt Count 232 (182-369) K/mm3 MPV 9.2 L (9.4-12.3) fl Neut % (Auto) 65.0 (34.0-71.1) % Lymph % (Auto) 17.8 L (19.3-51.7) % [place] % (Auto) 16.8 H (4.7-12.5) % Eos % (Auto) 0 L (0.7-5.8) Baso % (Auto) 0.2 (0.1-1.2) % Neut # (Auto) 3.13 (1.56-6.13) K/mm3 Lymph # (Auto) 0.86 L (1.18-3.74) K/mm3 [place] # (Auto) 0.81 H (0.24-0.36) K/mm3 Eos # (Auto) 0.00 L (0.04-0.36) K/mm3 Baso # (Auto) 0.01 (0.01-0.08) K/mm3 Sodium (136-145) mEq/L Potassium (3.5-5.1) mEq/L Chloride (98-107) mEq/L Carbon Dioxide (21-32) mEq/L Anion Gap (5-15) BUN (7-18) mg/dL Creatinine (0.55-1.02) mg/dL Est Cr Clr Drug Dosing mL/min Estimated GFR (MDRD) (>60) mL/min BUN/Creatinine Ratio (14-18) Glucose (70-99) mg/dL POC Glucose 123 H 139 H (70-99) mg/dL Calcium (8.5-10.1) mg/dL Total Bilirubin (0.2-1.0) mg/dL AST (15-37) U/L ALT (14-59) U/L Alkaline Phosphatase (46-116) U/L C-Reactive Protein (<1.0) mg/dL Total Protein (6.4-8.2) g/dl Albumin (3.4-5.0) g/dl Globulin gm/dL Albumin/Globulin Ratio (1-2) 12/21/20 12/21/20 12/21/20 Range/Units 05:17 06:46 11:11 WBC (3.98-10.04) K/mm3 RBC (3.98-5.22) M/mm3 Hgb (11.2-15.7) gm/dl Hct (34.1-44.9) % MCV (79.4-94.8) fl MCH (25.6-32.2) pg MCHC (32.2-35.5) g/dl RDW Std Deviation (36.4-46.3) fL Plt Count (182-369) K/mm3 MPV (9.4-12.3) fl Neut % (Auto) (34.0-71.1) % Lymph % (Auto) (19.3-51.7) % [place] % (Auto) (4.7-12.5) % Eos % (Auto) (0.7-5.8) Baso % (Auto) (0.1-1.2) % Neut # (Auto) (1.56-6.13) K/mm3 Lymph # (Auto) (1.18-3.74) K/mm3 [place] # (Auto) (0.24-0.36) K/mm3 Eos # (Auto) (0.04-0.36) K/mm3 Baso # (Auto) (0.01-0.08) K/mm3 Sodium 134 L (136-145) mEq/L Potassium 3.4 L (3.5-5.1) mEq/L Chloride 100 (98-107) mEq/L Carbon Dioxide 29 (21-32) mEq/L Anion Gap 8.4 (5-15) BUN 15 (7-18) mg/dL Creatinine 0.7 (0.55-1.02) mg/dL Est Cr Clr Drug Dosing 54.92 mL/min Estimated GFR (MDRD) > 60 (>60) mL/min BUN/Creatinine Ratio 21.4 H (14-18) Glucose 138 H (70-99) mg/dL POC Glucose 111 H 166 H (70-99) mg/dL Calcium 8.2 L (8.5-10.1) mg/dL Total Bilirubin 0.2 (0.2-1.0) mg/dL AST 63 H (15-37) U/L ALT 68 H (14-59) U/L Alkaline Phosphatase 56 (46-116) U/L C-Reactive Protein < 0.2 (<1.0) mg/dL Total Protein 5.8 L (6.4-8.2) g/dl Albumin 2.7 L (3.4-5.0) g/dl Globulin 3.1 gm/dL Albumin/Globulin Ratio 0.9 L (1-2) Med Orders - Current: Current Medications Acetaminophen (Acetaminophen 325 Mg Tab) 650 mg PO Q4H PRN PRN Reason: Pain (Mild 1-3)/fever Albuterol/Ipratropium (Albuterol/Ipratropium 3.0-0.5 Mg/3 Ml Neb Soln) 3 ml NEB Q4H PRN PRN Reason: Shortness Of Breath/wheezing Last Admin: 12/21/20 09:08 Dose: 3 ml Documented by: Alprazolam (Alprazolam 0.25 Mg Tab) 0.25 mg PO DAILY PRN PRN Reason: Anxiety Last Admin: 12/21/20 01:59 Dose: 0.125 mg Documented by: Artificial Tears (Carboxymethylcellulose Sodium 1% Ophth Gel 15 Ml Bottle) 0 ml EYEBOTH Q6H PRN PRN Reason: Dry Eyes Last Admin: 12/21/20 08:40 Dose: 1 drop Documented by: Aspirin (Aspirin 81 Mg Tab.Chew) 81 mg PO DAILY [facility] Last Admin: 12/21/20 08:36 Dose: 81 mg Documented by: Atenolol (Atenolol 25 Mg Tab) 25 mg PO DAILY [facility] Last Admin: 12/21/20 08:36 Dose: 25 mg Documented by: Dexamethasone (Dexamethasone 4 Mg Tab) 6 mg PO DAILY [facility] Last Admin: 12/21/20 08:37 Dose: 6 mg Documented by: Docusate Sodium (Docusate Sodium 100 Mg Cap) 100 mg PO BID PRN PRN Reason: Constipation Enoxaparin Sodium (Enoxaparin 40 Mg/0.4 Ml Syringe) 40 mg SUBCUT DAILY [facility] Last Admin: 12/21/20 08:39 Dose: 40 mg Documented by: Furosemide (Furosemide 20 Mg Tab) 20 mg PO DAILY [facility] Last Admin: 12/21/20 08:36 Dose: 20 mg Documented by: Azithromycin 500 mg/ Sodium (Chloride) 250 mls @ 250 mls/hr IV Q24H [facility] Last Admin: 12/20/20 16:01 Dose: 250 mls/hr Documented by: Remdesivir 100 mg/ Sodium (Chloride) 100 mls @ 100 mls/hr IV Q24H [facility] Stop: 12/22/20 17:59 Last Admin: 12/20/20 17:58 Dose: 100 mls/hr Documented by: Insulin Human Regular (Insulin Regular, Human 100 Units/Ml 3 Ml Vial) 0 unit SUBCUT BID@0700,1700 [facility]; Protocol Last Admin: 12/21/20 08:37 Dose: Not Given Documented by: Mometasone Furoate/Formoterol Fumar (Formoterol/Mometasone 200-5 Mcg 8.8 Gm Inhaler) 2 puff IH BID [facility] Last Admin: 12/21/20 08:35 Dose: 2 puff Documented by: Ondansetron HCl (Ondansetron 4 Mg Tab.Dis) 4 mg PO Q4H PRN PRN Reason: nausea, able to take PO Oxycodone HCl (Oxycodone 5 Mg Tab) 5 mg PO Q4H PRN PRN Reason: Pain (moderate 4-6) Potassium Chloride (Potassium Chloride 20 Meq Tab.Er) 20 meq PO DAILY [facility] Last Admin: 12/21/20 08:36 Dose: 20 meq Documented by: Sodium Chloride (Sodium Chloride 0.9% 10 Ml Syringe) 10 ml FLUSH ASDIRECTED PRN PRN Reason: Keep Vein Open Sodium Chloride (Sodium Chloride 0.9% 10 Ml Syringe) 30 ml FLUSH ASDIRECTED [facility] Discontinued Medications Albuterol/Ipratropium (Albuterol/Ipratropium 3.0-0.5 Mg/3 Ml Neb Soln) 3 ml NEB ONETIME ONE Stop: 12/18/20 09:55 Last Admin: 12/18/20 10:07 Dose: 3 ml Documented by: Diphenhydramine HCl (Diphenhydramine 50 Mg/Ml Sdv) 50 mg IVPUSH ASDIRECTED PRN PRN Reason: hypersensitivity reaction Epinephrine HCl (Epinephrine 1 Mg/Ml Sdv) 0.3 mg IM ASDIRECTED PRN PRN Reason: hypersensitivity reaction Famotidine (Famotidine 20 Mg/2 Ml Sdv) 20 mg IVPUSH ASDIRECTED PRN PRN Reason: hypersensitivity reaction Sodium Chloride (Normal Saline) 1,000 mls @ 1,000 mls/hr IV .BOLUS [facility] Last Admin: 12/18/20 10:05 Dose: 1,000 mls/hr Documented by: Bamlanivimab 700 mg/Etesevimab 1,400 mg/ Sodium Chloride 160 mls @ 310 mls/hr IV ONETIME ONE Stop: 12/18/20 10:25 Last Admin: 12/18/20 10:25 Dose: 310 mls/hr Documented by: Remdesivir 200 mg/ Sodium (Chloride) 250 mls @ 250 mls/hr IV ONETIME ONE Stop: 12/18/20 17:59 Last Admin: 12/18/20 16:53 Dose: 250 mls/hr Documented by: Sodium Chloride (Normal Saline) 1,000 mls @ 100 mls/hr IV ASDIRECTED [facility] Last Admin: 12/18/20 16:54 Dose: 100 mls/hr Documented by: Insulin Human Regular (Insulin Regular, Human 100 Units/Ml 3 Ml Vial) 0 unit SUBCUT BIDAC [facility]; Protocol Last Admin: 12/18/20 16:57 Dose: Not Given Documented by: Metformin HCl (Metformin 500 Mg Tab) 500 mg PO BIDMEALS [facility] Last Admin: 12/20/20 06:04 Dose: 500 mg Documented by: Methylprednisolone Sodium Succinate (Methylprednisolone Sodium Succinate 125 Mg/2 Ml Sdv) 125 mg IVPUSH ASDIRECTED PRN PRN Reason: hypersensitivity reaction Morphine Sulfate (Morphine 2 Mg/Ml Syringe) 2 mg IVPUSH Q2H PRN PRN Reason: Pain (severe 7-10) Stop: 12/19/20 15:43 Ondansetron HCl (Ondansetron 4 Mg/2 Ml Sdv) 4 mg IVPUSH ONETIME ONE Stop: 12/18/20 09:54 Last Admin: 12/18/20 10:06 Dose: 4 mg Documented by: - Exam Quality Assessment: Supplemental Oxygen, DVT Prophylaxis General: Alert, Oriented, Cooperative, No Acute Distress HEENT: Pupils Equal, Pupils Reactive, EOMI Neck: Supple, Trachea Midline Lungs: Normal Respiratory Effort, Rales Cardiovascular: Regular Rate, Regular Rhythm GI/Abdominal Exam: Normal Bowel Sounds, Soft, Non-Tender, No Distention (Female) Exam: Deferred Back Exam: Normal Inspection, Full Range of Motion Extremities: Normal Inspection, No Pedal Edema Skin: Warm, Dry, Intact Neurological: No New Focal Deficit Psy/Mental Status: Alert, Normal Affect, Normal Mood - Patient Data Lab Results Last 24 hrs: Laboratory Results - last 24 hr 12/20/20 12/20/20 12/21/20 Range/Units 11:30 17:33 05:17 WBC 4.82 (3.98-10.04) K/mm3 RBC 3.97 L (3.98-5.22) M/mm3 Hgb 11.7 (11.2-15.7) gm/dl Hct 36.1 (34.1-44.9) % MCV 90.9 (79.4-94.8) fl MCH 29.5 (25.6-32.2) pg MCHC 32.4 (32.2-35.5) g/dl RDW Std Deviation 45.0 (36.4-46.3) fL Plt Count 232 (182-369) K/mm3 MPV 9.2 L (9.4-12.3) fl Neut % (Auto) 65.0 (34.0-71.1) % Lymph % (Auto) 17.8 L (19.3-51.7) % [place] % (Auto) 16.8 H (4.7-12.5) % Eos % (Auto) 0 L (0.7-5.8) Baso % (Auto) 0.2 (0.1-1.2) % Neut # (Auto) 3.13 (1.56-6.13) K/mm3 Lymph # (Auto) 0.86 L (1.18-3.74) K/mm3 [place] # (Auto) 0.81 H (0.24-0.36) K/mm3 Eos # (Auto) 0.00 L (0.04-0.36) K/mm3 Baso # (Auto) 0.01 (0.01-0.08) K/mm3 Sodium (136-145) mEq/L Potassium (3.5-5.1) mEq/L Chloride (98-107) mEq/L Carbon Dioxide (21-32) mEq/L Anion Gap (5-15) BUN (7-18) mg/dL Creatinine (0.55-1.02) mg/dL Est Cr Clr Drug Dosing mL/min Estimated GFR (MDRD) (>60) mL/min BUN/Creatinine Ratio (14-18) Glucose (70-99) mg/dL POC Glucose 123 H 139 H (70-99) mg/dL Calcium (8.5-10.1) mg/dL Total Bilirubin (0.2-1.0) mg/dL AST (15-37) U/L ALT (14-59) U/L Alkaline Phosphatase (46-116) U/L C-Reactive Protein (<1.0) mg/dL Total Protein (6.4-8.2) g/dl Albumin (3.4-5.0) g/dl Globulin gm/dL Albumin/Globulin Ratio (1-2) 12/21/20 12/21/20 12/21/20 Range/Units 05:17 06:46 11:11 WBC (3.98-10.04) K/mm3 RBC (3.98-5.22) M/mm3 Hgb (11.2-15.7) gm/dl Hct (34.1-44.9) % MCV (79.4-94.8) fl MCH (25.6-32.2) pg MCHC (32.2-35.5) g/dl RDW Std Deviation (36.4-46.3) fL Plt Count (182-369) K/mm3 MPV (9.4-12.3) fl Neut % (Auto) (34.0-71.1) % Lymph % (Auto) (19.3-51.7) % [place] % (Auto) (4.7-12.5) % Eos % (Auto) (0.7-5.8) Baso % (Auto) (0.1-1.2) % Neut # (Auto) (1.56-6.13) K/mm3 Lymph # (Auto) (1.18-3.74) K/mm3 [place] # (Auto) (0.24-0.36) K/mm3 Eos # (Auto) (0.04-0.36) K/mm3 Baso # (Auto) (0.01-0.08) K/mm3 Sodium 134 L (136-145) mEq/L Potassium 3.4 L (3.5-5.1) mEq/L Chloride 100 (98-107) mEq/L Carbon Dioxide 29 (21-32) mEq/L Anion Gap 8.4 (5-15) BUN 15 (7-18) mg/dL Creatinine 0.7 (0.55-1.02) mg/dL Est Cr Clr Drug Dosing 54.92 mL/min Estimated GFR (MDRD) > 60 (>60) mL/min BUN/Creatinine Ratio 21.4 H (14-18) Glucose 138 H (70-99) mg/dL POC Glucose 111 H 166 H (70-99) mg/dL Calcium 8.2 L (8.5-10.1) mg/dL Total Bilirubin 0.2 (0.2-1.0) mg/dL AST 63 H (15-37) U/L ALT 68 H (14-59) U/L Alkaline Phosphatase 56 (46-116) U/L C-Reactive Protein < 0.2 (<1.0) mg/dL Total Protein 5.8 L (6.4-8.2) g/dl Albumin 2.7 L (3.4-5.0) g/dl Globulin 3.1 gm/dL Albumin/Globulin Ratio 0.9 L (1-2) Result Diagrams: 12/21/20 05:17 12/21/20 05:17 Sepsis Event Note - Evaluation Sepsis Screening Result: No Definite Risk - Focused Exam Vital Signs: Vital Signs Temp Pulse Resp BP Pulse Ox Pulse Ox 12/21/20 09:09 94 L 12/21/20 08:36 67 155/68 H 12/21/20 03:55 36.8 C 71 18 144/70 H 92 L - Problem List & Annotations (1) Acute respiratory failure due to COVID-19 SNOMED Code(s): 987884982 Code(s): U07.1 - COVID-19; J96.00 - ACUTE RESPIRATORY FAILURE, UNSP W HYPOXIA OR HYPERCAPNIA Status: Acute Priority: High Current Visit: Yes (2) Hyponatremia SNOMED Code(s): 35729863 Code(s): E87.1 - HYPO-OSMOLALITY AND HYPONATREMIA Status: Acute Priority: High Current Visit: Yes (3) COVID-19 SNOMED Code(s): 801203100 Code(s): U07.1 - COVID-19 Status: Acute Priority: High Current Visit: Yes (4) Hypertension SNOMED Code(s): 46856748 Code(s): I10 - ESSENTIAL (PRIMARY) HYPERTENSION Status: Chronic Priority: High Current Visit: Yes Qualifiers: Hypertension type: primary hypertension Qualified Code(s): I10 - Essential (primary) hypertension - Problem List Review Problem List Initiated/Reviewed/Updated: Yes - My Orders Last 24 Hours: My Active Orders 12/20/20 15:46 Pulse Oximetry Continuous Monitoring [OM.PC] Routine - Plan Plan:: The patient is a 75-year-old lady who had been admitted primarily out of concern for acute respiratory failure with hypoxia associated with COVID-19. The patient was also noted to have a sodium of 117 mEq/L and this will require slow correction. The patient admits that she has been only drinking fluids for the past several days and this is likely a dilution the patient also has a history of anxiety she has been started on her home dose of Xanax 0.25 mg p.o. daily. Because of the patient's history of COPD I have elected to place the patient on a azithromycin as treatment for possible COPD exacerbation as well. She is on dexamethasone 6 mg p.o. daily. I have also started the patient on remdesivir. This will be 100 mg IV starting tomorrow. The patient will have DVT prophylaxis with the use of Lovenox 40 mg subcutaneous daily. She is to have a carb constant diet as tolerated. I have also placed the patient on insulin sliding scale low-dose. She is on Metformin and this will be continued as she did not have CT scan of her chest with contrast. The patient should be appropriate for discharge upon completion of medications. 12/19/2020 Patient is a 75-year-old lady who had been admitted due to acute respiratory failure due to COVID-19 pneumonia. She was also admitted for hyponatremia which was thought to be due to dilutional effect. The patient has been fluid resuscitated. She has had some improvement of her hyponatremia. The patient has been able to eat more and her sodium is almost normalized. The patient will continue on her diabetic diet as tolerated. She is also on Metformin and this will continue. The patient has sliding scale insulin low-dose. She is to have Accu-Cheks before meals and at bedtime. Repeat laboratory studies have been ordered for the morning. The patient is using a azithromycin for bacterial sup erinfection and possible COPD exacerbation and this may be discontinued soon. She is on dexamethasone and remdesivir in both these will continue and she will need to be on dexamethasone after discharge. Repeat laboratory studies have been ordered. The patient has been encouraged to ambulate. 12/20/2020 The patient is a 75-year-old lady who is still in hospitalization for continuation of her remdesivir treatment for her COVID-19. The patient will continue on oxygen titrated to keep her saturations around 92%. The patient is tolerating her diabetic diet. She is on Accu-Cheks and sliding scale low-dose insulin. Repeat laboratory studies have been ordered for the morning. The patient will be continued on her azithromycin and this should be discontinued tomorrow. She has been encouraged to ambulate. The patient's previously critical sodium of 117 mmol/L have improved although still low at 134. This is likely the patient's baseline. She should be appropriate for discharge tomorrow after completion of remdesivir. 12/21/2020 75-year-old lady who had been admitted to acute hospitalization secondary to COVID-19. The patient has been breathing better. We will titrate her oxygen down to keep her saturations around 92%. The patient should finish her last dose of remdesivir tomorrow. She has been tolerating this well. The patient also has a history of COPD and she is on a azithromycin and this should be able to be discontinued tomorrow or upon discharge. She also has been encouraged to ambulate. The patient is anticoagulated with Lovenox 40 mg subcutaneously daily. Continue with the patient's diabetic diet and insulin sliding scale on low-dose insulin. The patient will need to be discharged on dexamethasone for further treatment. Initially the patient did have a sodium of 117 mmol/L and this is almost normalized today. Repeat laboratory studies have been ordered. The patient should be appropriate for her discharge when her oxygen demands have improved.
[2020-12-21] MEDS: Azithromycin 500 MG in Sodium Chloride 0.9% 250 ML IV SCH (16:38)
[2020-12-21] MEDS: REMDESIVIR 100 MG in Sodium Chloride 0.9% 100 ML IV SCH (17:53)
[2020-12-21] MEDS ORDERED: cloNIDine 0.1 MG Tab PO ONE (20:24)
[2020-12-21] MEDS ORDERED: ALPRAZolam 0.25 MG Tab PO ONE (22:53)
[2020-12-22 04:43] VITALS: PULSE 65
[2020-12-22] MEDS: Insulin Regular, Human 100 Units/ML 3 ML Vial SUBCUT SCH (07:58)
[2020-12-22] MEDS ORDERED: Magnesium Sulfate/Water 2 GM in Premix Bag 1 BAG IV ONE (08:19)
[2020-12-22] MEDS: Formoterol/Mometasone 200-5 MCG 8.8 GM Inhaler IH SCH (08:39)
[2020-12-22] MEDS: Furosemide 20 MG Tab PO SCH (09:13)
[2020-12-22] MEDS: Atenolol 25 MG Tab PO SCH (09:13)
[2020-12-22] MEDS: Dexamethasone 4 MG Tab PO SCH (09:13)
[2020-12-22] MEDS: Potassium Chloride 20 MEQ Tab.ER PO SCH (09:13)
[2020-12-22] MEDS: Aspirin 81 MG Tab.Chew PO SCH (09:13)
[2020-12-22] MEDS: Enoxaparin 40 MG/0.4 ML Syringe SUBCUT SCH (09:14)
[2020-12-22 09:16] VITALS: BP 158/70
--- NOTE | 2020-12-22 10:26 | PCM.PN ---
<Susana Canales - Last Filed: 12/22/20 11:01> - General Info Date of Service: 12/22/20 Admission Dx/Problem (Free Text): Admission Diagnosis/Problem Admission Diagnosis/Problem acute respiratory failure associated with COVID-19. Subjective Update: Carlita is a 75yo female with hypertension, type 2 diabetes mellitus, COPD and anxiety admitted on 12/18/2020 for hypoxemia and respiratory distress secondary to COVID-19. She tested positive on 12/15/2020. She has had symptoms of headache, cough, diarrhea and nausea, all of which have since resolved. She states that she is feeling much better today and would like to go home. She has been able to ambulate to the bathroom without assistance. She has 5 steps up to her home and uses a tub shower. She has family support who will likely be providing assistance for her. Functional Status: Reports: Pain Controlled (d) - Review of Systems General: Reports: No Symptoms HEENT: Reports: No Symptoms Pulmonary: Reports: No Symptoms Cardiovascular: Reports: No Symptoms Gastrointestinal: Reports: No Symptoms Genitourinary: Reports: No Symptoms Musculoskeletal: Reports: No Symptoms Skin: Reports: No Symptoms Neurological: Reports: No Symptoms Psychiatric: Reports: No Symptoms - Patient Data Vitals - Most Recent: Last Vital Signs Temp 98.4 F 12/22/20 09:11 Pulse 65 12/22/20 09:13 Resp 16 12/22/20 09:11 BP 158/70 H 12/22/20 09:13 Pulse Ox 93 L 12/22/20 09:11 Weight - Most Recent: 165 lb 9.6 oz I&O - Last 24 Hours: Intake & Output 12/21/20 12/22/20 12/22/20 22:59 06:59 14:59 Intake Total 400 1432 Output Total 500 900 Balance -100 532 Lab Results Last 24 Hours: Laboratory Results - last 24 hr 12/21/20 12/21/20 12/22/20 Range/Units 11:11 16:46 05:18 WBC 4.58 (3.98-10.04) K/mm3 RBC 3.93 L (3.98-5.22) M/mm3 Hgb 11.5 (11.2-15.7) gm/dl Hct 35.4 (34.1-44.9) % MCV 90.1 (79.4-94.8) fl MCH 29.3 (25.6-32.2) pg MCHC 32.5 (32.2-35.5) g/dl RDW Std Deviation 43.7 (36.4-46.3) fL Plt Count 260 (182-369) K/mm3 MPV 9.0 L (9.4-12.3) fl Neut % (Auto) 62.2 (34.0-71.1) % Lymph % (Auto) 19.9 (19.3-51.7) % Bradford % (Auto) 17.7 H (4.7-12.5) % Eos % (Auto) 0 L (0.7-5.8) Baso % (Auto) 0.0 L (0.1-1.2) % Neut # (Auto) 2.85 (1.56-6.13) K/mm3 Lymph # (Auto) 0.91 L (1.18-3.74) K/mm3 Bradford # (Auto) 0.81 H (0.24-0.36) K/mm3 Eos # (Auto) 0.00 L (0.04-0.36) K/mm3 Baso # (Auto) 0.00 L (0.01-0.08) K/mm3 Manual Slide Review Normal smear Sodium (136-145) mEq/L Potassium (3.5-5.1) mEq/L Chloride (98-107) mEq/L Carbon Dioxide (21-32) mEq/L Anion Gap (5-15) BUN (7-18) mg/dL Creatinine (0.55-1.02) mg/dL Est Cr Clr Drug Dosing mL/min Estimated GFR (MDRD) (>60) mL/min BUN/Creatinine Ratio (14-18) Glucose (70-99) mg/dL POC Glucose 166 H 250 H (70-99) mg/dL Calcium (8.5-10.1) mg/dL Magnesium (1.8-2.4) mg/dL Total Bilirubin (0.2-1.0) mg/dL AST (15-37) U/L ALT (14-59) U/L Alkaline Phosphatase (46-116) U/L Total Protein (6.4-8.2) g/dl Albumin (3.4-5.0) g/dl Globulin gm/dL Albumin/Globulin Ratio (1-2) 12/22/20 12/22/20 Range/Units 05:18 06:55 WBC (3.98-10.04) K/mm3 RBC (3.98-5.22) M/mm3 Hgb (11.2-15.7) gm/dl Hct (34.1-44.9) % MCV (79.4-94.8) fl MCH (25.6-32.2) pg MCHC (32.2-35.5) g/dl RDW Std Deviation (36.4-46.3) fL Plt Count (182-369) K/mm3 MPV (9.4-12.3) fl Neut % (Auto) (34.0-71.1) % Lymph % (Auto) (19.3-51.7) % Bradford % (Auto) (4.7-12.5) % Eos % (Auto) (0.7-5.8) Baso % (Auto) (0.1-1.2) % Neut # (Auto) (1.56-6.13) K/mm3 Lymph # (Auto) (1.18-3.74) K/mm3 [place] # (Auto) (0.24-0.36) K/mm3 Eos # (Auto) (0.04-0.36) K/mm3 Baso # (Auto) (0.01-0.08) K/mm3 Manual Slide Review Sodium 135 L (136-145) mEq/L Potassium 3.6 (3.5-5.1) mEq/L Chloride 98 (98-107) mEq/L Carbon Dioxide 32 (21-32) mEq/L Anion Gap 8.6 (5-15) BUN 11 (7-18) mg/dL Creatinine 0.7 (0.55-1.02) mg/dL Est Cr Clr Drug Dosing 54.92 mL/min Estimated GFR (MDRD) > 60 (>60) mL/min BUN/Creatinine Ratio 15.7 (14-18) Glucose 134 H (70-99) mg/dL POC Glucose 112 H (70-99) mg/dL Calcium 8.5 (8.5-10.1) mg/dL Magnesium 1.6 L (1.8-2.4) mg/dL Total Bilirubin 0.2 (0.2-1.0) mg/dL AST 37 (15-37) U/L ALT 61 H (14-59) U/L Alkaline Phosphatase 57 (46-116) U/L Total Protein 5.6 L (6.4-8.2) g/dl Albumin 2.7 L (3.4-5.0) g/dl Globulin 2.9 gm/dL Albumin/Globulin Ratio 0.9 L (1-2) Med Orders - Current: Current Medications Acetaminophen (Acetaminophen 325 Mg Tab) 650 mg PO Q4H PRN PRN Reason: Pain (Mild 1-3)/fever Albuterol/Ipratropium (Albuterol/Ipratropium 3.0-0.5 Mg/3 Ml Neb Soln) 3 ml NEB Q4H PRN PRN Reason: Shortness Of Breath/wheezing Last Admin: 12/21/20 09:08 Dose: 3 ml Documented by: Alprazolam (Alprazolam 0.25 Mg Tab) 0.25 mg PO DAILY PRN PRN Reason: Anxiety Last Admin: 12/21/20 01:59 Dose: 0.125 mg Documented by: Artificial Tears (Carboxymethylcellulose Sodium 1% Ophth Gel 15 Ml Bottle) 0 ml EYEBOTH Q6H PRN PRN Reason: Dry Eyes Last Admin: 12/21/20 21:13 Dose: 1 drop Documented by: Aspirin (Aspirin 81 Mg Tab.Chew) 81 mg PO DAILY [facility] Last Admin: 12/22/20 09:13 Dose: 81 mg Documented by: Atenolol (Atenolol 25 Mg Tab) 25 mg PO DAILY [facility] Last Admin: 12/22/20 09:13 Dose: 25 mg Documented by: Dexamethasone (Dexamethasone 4 Mg Tab) 6 mg PO DAILY [facility] Last Admin: 12/22/20 09:13 Dose: 6 mg Documented by: Docusate Sodium (Docusate Sodium 100 Mg Cap) 100 mg PO BID PRN PRN Reason: Constipation Enoxaparin Sodium (Enoxaparin 40 Mg/0.4 Ml Syringe) 40 mg SUBCUT DAILY [facility] Last Admin: 12/22/20 09:14 Dose: 40 mg Documented by: Furosemide (Furosemide 20 Mg Tab) 20 mg PO DAILY [facility] Last Admin: 12/22/20 09:13 Dose: 20 mg Documented by: Azithromycin 500 mg/ Sodium (Chloride) 250 mls @ 250 mls/hr IV Q24H [facility] Last Admin: 12/21/20 16:38 Dose: 250 mls/hr Documented by: Remdesivir 100 mg/ Sodium (Chloride) 100 mls @ 100 mls/hr IV Q24H [facility] Stop: 12/22/20 17:59 Last Admin: 12/21/20 17:53 Dose: 100 mls/hr Documented by: Magnesium Sulfate 2 gm/ Premix 50 mls @ 25 mls/hr IV ONETIME ONE Stop: 12/22/20 10:18 Last Admin: 12/22/20 09:16 Dose: 25 mls/hr Documented by: Insulin Human Regular (Insulin Regular, Human 100 Units/Ml 3 Ml Vial) 0 unit SUBCUT BID@0700,1700 [facility]; Protocol Last Admin: 12/22/20 07:58 Dose: Not Given Documented by: Mometasone Furoate/Formoterol Fumar (Formoterol/Mometasone 200-5 Mcg 8.8 Gm Inhaler) 2 puff IH BID [facility] Last Admin: 12/22/20 08:39 Dose: 2 puff Documented by: Ondansetron HCl (Ondansetron 4 Mg Tab.Dis) 4 mg PO Q4H PRN PRN Reason: nausea, able to take PO Oxycodone HCl (Oxycodone 5 Mg Tab) 5 mg PO Q4H PRN PRN Reason: Pain (moderate 4-6) Potassium Chloride (Potassium Chloride 20 Meq Tab.Er) 20 meq PO DAILY [facility] Last Admin: 12/22/20 09:13 Dose: 20 meq Documented by: Sodium Chloride (Sodium Chloride 0.9% 10 Ml Syringe) 10 ml FLUSH ASDIRECTED PRN PRN Reason: Keep Vein Open Sodium Chloride (Sodium Chloride 0.9% 10 Ml Syringe) 30 ml FLUSH ASDIRECTED [facility] Discontinued Medications Albuterol/Ipratropium (Albuterol/Ipratropium 3.0-0.5 Mg/3 Ml Neb Soln) 3 ml NEB ONETIME ONE Stop: 12/18/20 09:55 Last Admin: 12/18/20 10:07 Dose: 3 ml Documented by: Alprazolam (Alprazolam 0.25 Mg Tab) 0.25 mg PO ONETIME ONE Stop: 12/21/20 22:54 Last Admin: 12/21/20 23:12 Dose: 0.125 mg Documented by: Clonidine HCl (Clonidine 0.1 Mg Tab) 0.2 mg PO ONETIME ONE Stop: 12/21/20 20:25 Last Admin: 12/21/20 21:12 Dose: 0.2 mg Documented by: Diphenhydramine HCl (Diphenhydramine 50 Mg/Ml Sdv) 50 mg IVPUSH ASDIRECTED PRN PRN Reason: hypersensitivity reaction Epinephrine HCl (Epinephrine 1 Mg/Ml Sdv) 0.3 mg IM ASDIRECTED PRN PRN Reason: hypersensitivity reaction Famotidine (Famotidine 20 Mg/2 Ml Sdv) 20 mg IVPUSH ASDIRECTED PRN PRN Reason: hypersensitivity reaction Sodium Chloride (Normal Saline) 1,000 mls @ 1,000 mls/hr IV .BOLUS [facility] Last Admin: 12/18/20 10:05 Dose: 1,000 mls/hr Documented by: Bamlanivimab 700 mg/Etesevimab 1,400 mg/ Sodium Chloride 160 mls @ 310 mls/hr IV ONETIME ONE Stop: 12/18/20 10:25 Last Admin: 12/18/20 10:25 Dose: 310 mls/hr Documented by: Remdesivir 200 mg/ Sodium (Chloride) 250 mls @ 250 mls/hr IV ONETIME ONE Stop: 12/18/20 17:59 Last Admin: 12/18/20 16:53 Dose: 250 mls/hr Documented by: Sodium Chloride (Normal Saline) 1,000 mls @ 100 mls/hr IV ASDIRECTED [facility] Last Admin: 12/18/20 16:54 Dose: 100 mls/hr Documented by: Insulin Human Regular (Insulin Regular, Human 100 Units/Ml 3 Ml Vial) 0 unit SUBCUT BIDAC [facility]; Protocol Last Admin: 12/18/20 16:57 Dose: Not Given Documented by: Metformin HCl (Metformin 500 Mg Tab) 500 mg PO BIDMEALS [facility] Last Admin: 12/20/20 06:04 Dose: 500 mg Documented by: Methylprednisolone Sodium Succinate (Methylprednisolone Sodium Succinate 125 Mg/2 Ml Sdv) 125 mg IVPUSH ASDIRECTED PRN PRN Reason: hypersensitivity reaction Morphine Sulfate (Morphine 2 Mg/Ml Syringe) 2 mg IVPUSH Q2H PRN PRN Reason: Pain (severe 7-10) Stop: 12/19/20 15:43 Ondansetron HCl (Ondansetron 4 Mg/2 Ml Sdv) 4 mg IVPUSH ONETIME ONE Stop: 12/18/20 09:54 Last Admin: 12/18/20 10:06 Dose: 4 mg Documented by: - Exam Quality Assessment: Supplemental Oxygen General: Alert, Oriented, Cooperative, No Acute Distress HEENT: Pupils Equal, Pupils Reactive, EOMI, Mucous Membr. Moist/[place] Neck: Supple, Trachea Midline Lungs: Normal Respiratory Effort, Crackles (Lower & upper lobes of left lung, Lower & middle lobes of right lung), Wheezing (expiratory in upper lobes) Cardiovascular: Regular Rate, Regular Rhythm, No Murmurs GI/Abdominal Exam: Normal Bowel Sounds, Soft, Non-Tender, No Organomegaly, No Distention, No Mass Back Exam: Normal Inspection, Full Range of Motion Extremities: Normal Inspection, Normal Range of Motion, Non-Tender, No Pedal Edema, Normal Capillary Refill Peripheral Pulses: 2+: Radial (L), Radial (R), Posterior Tibial (L), Posterior Tibial (R) Skin: Warm, Dry, Intact Neurological: No New Focal Deficit, Normal Speech Psy/Mental Status: Alert, Normal Affect, Normal Mood - Patient Data Lab Results Last 24 hrs: Laboratory Results - last 24 hr 12/21/20 12/21/20 12/22/20 Range/Units 11:11 16:46 05:18 WBC 4.58 (3.98-10.04) K/mm3 RBC 3.93 L (3.98-5.22) M/mm3 Hgb 11.5 (11.2-15.7) gm/dl Hct 35.4 (34.1-44.9) % MCV 90.1 (79.4-94.8) fl MCH 29.3 (25.6-32.2) pg MCHC 32.5 (32.2-35.5) g/dl RDW Std Deviation 43.7 (36.4-46.3) fL Plt Count 260 (182-369) K/mm3 MPV 9.0 L (9.4-12.3) fl Neut % (Auto) 62.2 (34.0-71.1) % Lymph % (Auto) 19.9 (19.3-51.7) % Bradford % (Auto) 17.7 H (4.7-12.5) % Eos % (Auto) 0 L (0.7-5.8) Baso % (Auto) 0.0 L (0.1-1.2) % Neut # (Auto) 2.85 (1.56-6.13) K/mm3 Lymph # (Auto) 0.91 L (1.18-3.74) K/mm3 Bradford # (Auto) 0.81 H (0.24-0.36) K/mm3 Eos # (Auto) 0.00 L (0.04-0.36) K/mm3 Baso # (Auto) 0.00 L (0.01-0.08) K/mm3 Manual Slide Review Normal smear Sodium (136-145) mEq/L Potassium (3.5-5.1) mEq/L Chloride (98-107) mEq/L Carbon Dioxide (21-32) mEq/L Anion Gap (5-15) BUN (7-18) mg/dL Creatinine (0.55-1.02) mg/dL Est Cr Clr Drug Dosing mL/min Estimated GFR (MDRD) (>60) mL/min BUN/Creatinine Ratio (14-18) Glucose (70-99) mg/dL POC Glucose 166 H 250 H (70-99) mg/dL Calcium (8.5-10.1) mg/dL Magnesium (1.8-2.4) mg/dL Total Bilirubin (0.2-1.0) mg/dL AST (15-37) U/L ALT (14-59) U/L Alkaline Phosphatase (46-116) U/L Total Protein (6.4-8.2) g/dl Albumin (3.4-5.0) g/dl Globulin gm/dL Albumin/Globulin Ratio (1-2) 12/22/20 12/22/20 Range/Units 05:18 06:55 WBC (3.98-10.04) K/mm3 RBC (3.98-5.22) M/mm3 Hgb (11.2-15.7) gm/dl Hct (34.1-44.9) % MCV (79.4-94.8) fl MCH (25.6-32.2) pg MCHC (32.2-35.5) g/dl RDW Std Deviation (36.4-46.3) fL Plt Count (182-369) K/mm3 MPV (9.4-12.3) fl Neut % (Auto) (34.0-71.1) % Lymph % (Auto) (19.3-51.7) % Bradford % (Auto) (4.7-12.5) % Eos % (Auto) (0.7-5.8) Baso % (Auto) (0.1-1.2) % Neut # (Auto) (1.56-6.13) K/mm3 Lymph # (Auto) (1.18-3.74) K/mm3 Bradford # (Auto) (0.24-0.36) K/mm3 Eos # (Auto) (0.04-0.36) K/mm3 Baso # (Auto) (0.01-0.08) K/mm3 Manual Slide Review Sodium 135 L (136-145) mEq/L Potassium 3.6 (3.5-5.1) mEq/L Chloride 98 (98-107) mEq/L Carbon Dioxide 32 (21-32) mEq/L Anion Gap 8.6 (5-15) BUN 11 (7-18) mg/dL Creatinine 0.7 (0.55-1.02) mg/dL Est Cr Clr Drug Dosing 54.92 mL/min Estimated GFR (MDRD) > 60 (>60) mL/min BUN/Creatinine Ratio 15.7 (14-18) Glucose 134 H (70-99) mg/dL POC Glucose 112 H (70-99) mg/dL Calcium 8.5 (8.5-10.1) mg/dL Magnesium 1.6 L (1.8-2.4) mg/dL Total Bilirubin 0.2 (0.2-1.0) mg/dL AST 37 (15-37) U/L ALT 61 H (14-59) U/L Alkaline Phosphatase 57 (46-116) U/L Total Protein 5.6 L (6.4-8.2) g/dl Albumin 2.7 L (3.4-5.0) g/dl Globulin 2.9 gm/dL Albumin/Globulin Ratio 0.9 L (1-2) Result Diagrams: 12/22/20 05:18 12/22/20 05:18 Sepsis Event Note - Evaluation Sepsis Screening Result: No Definite Risk - Focused Exam Vital Signs: Vital Signs Temp Pulse Resp BP Pulse Ox Pulse Ox Pulse Ox 12/22/20 09:13 65 158/70 H 12/22/20 09:11 98.4 F 65 16 158/70 H 93 L 12/22/20 08:49 85 L 12/22/20 08:43 85 L 12/22/20 08:40 90 L 12/22/20 08:30 82 L 12/22/20 03:51 98.4 F 65 20 102/81 93 L 12/22/20 00:23 97.7 F 66 16 137/62 93 L 12/21/20 22:24 136/72 - Problem List & Annotations (1) Diabetes mellitus type 2 in nonobese SNOMED Code(s): 915494293 Code(s): E11.9 - TYPE 2 DIABETES MELLITUS WITHOUT COMPLICATIONS Status: Chronic Priority: High Current Visit: Yes (2) Acute respiratory failure due to COVID-19 SNOMED Code(s): 220807138 Code(s): U07.1 - COVID-19; J96.00 - ACUTE RESPIRATORY FAILURE, UNSP W HYPOXIA OR HYPERCAPNIA Status: Acute Priority: High Current Visit: Yes (3) Anxiety SNOMED Code(s): 13648176 Code(s): F41.9 - ANXIETY DISORDER, UNSPECIFIED Status: Acute Current Visit: No (4) Hypertension SNOMED Code(s): 74181657 Code(s): I10 - ESSENTIAL (PRIMARY) HYPERTENSION Status: Chronic Priority: High Current Visit: Yes Qualifiers: Hypertension type: primary hypertension Qualified Code(s): I10 - Essential (primary) hypertension (5) COVID-19 SNOMED Code(s): 994494181 Code(s): U07.1 - COVID-19 Status: Acute Priority: High Current Visit: Yes (6) Hypoxia SNOMED Code(s): 469872472 Code(s): R09.02 - HYPOXEMIA Status: Acute Priority: High Current Visit: Yes - Problem List Review Problem List Initiated/Reviewed/Updated: Yes - Plan Plan:: The patient is a 75-year-old lady who had been admitted primarily out of concern for acute respiratory failure with hypoxia associated with COVID-19. The patient was also noted to have a sodium of 117 mEq/L and this will require slow correction. The patient admits that she has been only drinking fluids for the past several days and this is likely a dilution the patient also has a history of anxiety she has been started on her home dose of Xanax 0.25 mg p.o. daily. Because of the patient's history of COPD I have elected to place the patient on a azithromycin as treatment for possible COPD exacerbation as well. She is on dexamethasone 6 mg p.o. daily. I have also started the patient on remdesivir. This will be 100 mg IV starting tomorrow. The patient will have DVT prophylaxis with the use of Lovenox 40 mg subcutaneous daily. She is to have a carb constant diet as tolerated. I have also placed the patient on insulin sliding scale low-dose. She is on Metformin and this will be continued as she did not have CT scan of her chest with contrast. The patient should be appropriate for discharge upon completion of medications. 12/19/2020 Patient is a 75-year-old lady who had been admitted due to acute respiratory failure due to COVID-19 pneumonia. She was also admitted for hyponatremia which was thought to be due to dilutional effect. The patient has been fluid resuscitated. She has had some improvement of her hyponatremia. The patient has been able to eat more and her sodium is almost normalized. The patient will continue on her diabetic diet as tolerated. She is also on Metformin and this will continue. The patient has sliding scale insulin low-dose. She is to have Accu-Cheks before meals and at bedtime. Repeat laboratory studies have been ord ered for the morning. The patient is using a azithromycin for bacterial superinfection and possible COPD exacerbation and this may be discontinued soon. She is on dexamethasone and remdesivir in both these will continue and she will need to be on dexamethasone after discharge. Repeat laboratory studies have been ordered. The patient has been encouraged to ambulate. 12/20/2020 The patient is a 75-year-old lady who is still in hospitalization for continuation of her remdesivir treatment for her COVID-19. The patient will continue on oxygen titrated to keep her saturations around 92%. The patient is tolerating her diabetic diet. She is on Accu-Cheks and sliding scale low-dose insulin. Repeat laboratory studies have been ordered for the morning. The patient will be continued on her azithromycin and this should be discontinued tomorrow. She has been encouraged to ambulate. The patient's previously critical sodium of 117 mmol/L have improved although still low at 134. This is likely the patient's baseline. She should be appropriate for discharge tomorrow after completion of remdesivir. 12/21/2020 75-year-old lady who had been admitted to acute hospitalization secondary to COVID-19. The patient has been breathing better. We will titrate her oxygen down to keep her saturations around 92%. The patient should finish her last dose of remdesivir tomorrow. She has been tolerating this well. The patient also has a history of COPD and she is on a azithromycin and this should be able to be discontinued tomorrow or upon discharge. She also has been encouraged to ambulate. The patient is anticoagulated with Lovenox 40 mg subcutaneously daily. Continue with the patient's diabetic diet and insulin sliding scale on l ow-dose insulin. The patient will need to be discharged on dexamethasone for further treatment. Initially the patient did have a sodium of 117 mmol/L and this is almost normalized today. Repeat laboratory studies have been ordered. The patient should be appropriate for her discharge when her oxygen demands have improved. 12/22/2020 Carlita is a 75yo female with COPD, T2DM, essential hypertension, and anxiety admitted for hospitalization secondary to COVID-19. She is breathing and feeling better. She is able to ambulate to the bathroom and will have family support at home. Pending continued improvement and final remdesivir dose, it will be appropriate to discharge her to home. COVID-19 hypoxemia and respiratory distress * continue oral dexamethasone * final dose of Remdesivir at 1500 today * discontinue azithromycin * continue on 1L oxygen to keep saturations around 92% * plan to discharge to home on oxygen after evening Remdesivir dose Essential Hypertension * continue atenolol, furosemide, potassium T2DM * continue sliding scale insulin on low-dose insulin while hospitalized * diabetic diet Electrolyte disturbances * hyponatremia is almost normalized to 135 * replace magnesium for hypomagnesemia of 1.6 VTE prophylaxis * continue 40mg subcutaneous Lovenox while hospitalized Code status: Full Code <Kelly Hwang III - Last Filed: 12/22/20 11:59> - Patient Data Vitals - Most Recent: Last Vital Signs Temp 98.4 F 12/22/20 09:11 Pulse 65 12/22/20 09:13 Resp 16 12/22/20 09:11 BP 158/70 H 12/22/20 09:13 Pulse Ox 93 L 12/22/20 09:11 I&O - Last 24 Hours: Intake & Output 12/21/20 12/22/20 12/22/20 22:59 06:59 14:59 Intake Total 400 1432 Output Total 500 900 Balance -100 532 Lab Results Last 24 Hours: Laboratory Results - last 24 hr 12/21/20 12/22/20 12/22/20 Range/Units 16:46 05:18 05:18 WBC 4.58 (3.98-10.04) K/mm3 RBC 3.93 L (3.98-5.22) M/mm3 Hgb 11.5 (11.2-15.7) gm/dl Hct 35.4 (34.1-44.9) % MCV 90.1 (79.4-94.8) fl MCH 29.3 (25.6-32.2) pg MCHC 32.5 (32.2-35.5) g/dl RDW Std Deviation 43.7 (36.4-46.3) fL Plt Count 260 (182-369) K/mm3 MPV 9.0 L (9.4-12.3) fl Neut % (Auto) 62.2 (34.0-71.1) % Lymph % (Auto) 19.9 (19.3-51.7) % [place] % (Auto) 17.7 H (4.7-12.5) % Eos % (Auto) 0 L (0.7-5.8) Baso % (Auto) 0.0 L (0.1-1.2) % Neut # (Auto) 2.85 (1.56-6.13) K/mm3 Lymph # (Auto) 0.91 L (1.18-3.74) K/mm3 [place] # (Auto) 0.81 H (0.24-0.36) K/mm3 Eos # (Auto) 0.00 L (0.04-0.36) K/mm3 Baso # (Auto) 0.00 L (0.01-0.08) K/mm3 Manual Slide Review Normal smear Sodium 135 L (136-145) mEq/L Potassium 3.6 (3.5-5.1) mEq/L Chloride 98 (98-107) mEq/L Carbon Dioxide 32 (21-32) mEq/L Anion Gap 8.6 (5-15) BUN 11 (7-18) mg/dL Creatinine 0.7 (0.55-1.02) mg/dL Est Cr Clr Drug Dosing 54.92 mL/min Estimated GFR (MDRD) > 60 (>60) mL/min BUN/Creatinine Ratio 15.7 (14-18) Glucose 134 H (70-99) mg/dL POC Glucose 250 H (70-99) mg/dL Calcium 8.5 (8.5-10.1) mg/dL Magnesium 1.6 L (1.8-2.4) mg/dL Total Bilirubin 0.2 (0.2-1.0) mg/dL AST 37 (15-37) U/L ALT 61 H (14-59) U/L Alkaline Phosphatase 57 (46-116) U/L Total Protein 5.6 L (6.4-8.2) g/dl Albumin 2.7 L (3.4-5.0) g/dl Globulin 2.9 gm/dL Albumin/Globulin Ratio 0.9 L (1-2) 12/22/20 12/22/20 Range/Units 06:55 11:08 WBC (3.98-10.04) K/mm3 RBC (3.98-5.22) M/mm3 Hgb (11.2-15.7) gm/dl Hct (34.1-44.9) % MCV (79.4-94.8) fl MCH (25.6-32.2) pg MCHC (32.2-35.5) g/dl RDW Std Deviation (36.4-46.3) fL Plt Count (182-369) K/mm3 MPV (9.4-12.3) fl Neut % (Auto) (34.0-71.1) % Lymph % (Auto) (19.3-51.7) % [place] % (Auto) (4.7-12.5) % Eos % (Auto) (0.7-5.8) Baso % (Auto) (0.1-1.2) % Neut # (Auto) (1.56-6.13) K/mm3 Lymph # (Auto) (1.18-3.74) K/mm3 [place] # (Auto) (0.24-0.36) K/mm3 Eos # (Auto) (0.04-0.36) K/mm3 Baso # (Auto) (0.01-0.08) K/mm3 Manual Slide Review Sodium (136-145) mEq/L Potassium (3.5-5.1) mEq/L Chloride (98-107) mEq/L Carbon Dioxide (21-32) mEq/L Anion Gap (5-15) BUN (7-18) mg/dL Creatinine (0.55-1.02) mg/dL Est Cr Clr Drug Dosing mL/min Estimated GFR (MDRD) (>60) mL/min BUN/Creatinine Ratio (14-18) Glucose (70-99) mg/dL POC Glucose 112 H 143 H (70-99) mg/dL Calcium (8.5-10.1) mg/dL Magnesium (1.8-2.4) mg/dL Total Bilirubin (0.2-1.0) mg/dL AST (15-37) U/L ALT (14-59) U/L Alkaline Phosphatase (46-116) U/L Total Protein (6.4-8.2) g/dl Albumin (3.4-5.0) g/dl Globulin gm/dL Albumin/Globulin Ratio (1-2) Med Orders - Current: Current Medications Acetaminophen (Acetaminophen 325 Mg Tab) 650 mg PO Q4H PRN PRN Reason: Pain (Mild 1-3)/fever Albuterol/Ipratropium (Albuterol/Ipratropium 3.0-0.5 Mg/3 Ml Neb Soln) 3 ml NEB Q4H PRN PRN Reason: Shortness Of Breath/wheezing Last Admin: 12/21/20 09:08 Dose: 3 ml Documented by: Alprazolam (Alprazolam 0.25 Mg Tab) 0.25 mg PO DAILY PRN PRN Reason: Anxiety Last Admin: 12/21/20 01:59 Dose: 0.125 mg Documented by: Artificial Tears (Carboxymethylcellulose Sodium 1% Ophth Gel 15 Ml Bottle) 0 ml EYEBOTH Q6H PRN PRN Reason: Dry Eyes Last Admin: 12/21/20 21:13 Dose: 1 drop Documented by: Aspirin (Aspirin 81 Mg Tab.Chew) 81 mg PO DAILY [facility] Last Admin: 12/22/20 09:13 Dose: 81 mg Documented by: Atenolol (Atenolol 25 Mg Tab) 25 mg PO DAILY [facility] Last Admin: 12/22/20 09:13 Dose: 25 mg Documented by: Dexamethasone (Dexamethasone 4 Mg Tab) 6 mg PO DAILY [facility] Last Admin: 12/22/20 09:13 Dose: 6 mg Documented by: Docusate Sodium (Docusate Sodium 100 Mg Cap) 100 mg PO BID PRN PRN Reason: Constipation Enoxaparin Sodium (Enoxaparin 40 Mg/0.4 Ml Syringe) 40 mg SUBCUT DAILY [facility] Last Admin: 12/22/20 09:14 Dose: 40 mg Documented by: Furosemide (Furosemide 20 Mg Tab) 20 mg PO DAILY [facility] Last Admin: 12/22/20 09:13 Dose: 20 mg Documented by: Remdesivir 100 mg/ Sodium (Chloride) 100 mls @ 100 mls/hr IV ONETIME ONE Stop: 12/22/20 15:59 Insulin Human Regular (Insulin Regular, Human 100 Units/Ml 3 Ml Vial) 0 unit SUBCUT BID@0700,1700 [facility]; Protocol Last Admin: 12/22/20 07:58 Dose: Not Given Documented by: Mometasone Furoate/Formoterol Fumar (Formoterol/Mometasone 200-5 Mcg 8.8 Gm Inhaler) 2 puff IH BID [facility] Last Admin: 12/22/20 08:39 Dose: 2 puff Documented by: Ondansetron HCl (Ondansetron 4 Mg Tab.Dis) 4 mg PO Q4H PRN PRN Reason: nausea, able to take PO Oxycodone HCl (Oxycodone 5 Mg Tab) 5 mg PO Q4H PRN PRN Reason: Pain (moderate 4-6) Potassium Chloride (Potassium Chloride 20 Meq Tab.Er) 20 meq PO DAILY [facility] Last Admin: 12/22/20 09:13 Dose: 20 meq Documented by: Sodium Chloride (Sodium Chloride 0.9% 10 Ml Syringe) 10 ml FLUSH ASDIRECTED PRN PRN Reason: Keep Vein Open Sodium Chloride (Sodium Chloride 0.9% 10 Ml Syringe) 30 ml FLUSH ASDIRECTED KAYE Discontinued Medications Albuterol/Ipratropium (Albuterol/Ipratropium 3.0-0.5 Mg/3 Ml Neb Soln) 3 ml NEB ONETIME ONE Stop: 12/18/20 09:55 Last Admin: 12/18/20 10:07 Dose: 3 ml Documented by: Alprazolam (Alprazolam 0.25 Mg Tab) 0.25 mg PO ONETIME ONE Stop: 12/21/20 22:54 Last Admin: 12/21/20 23:12 Dose: 0.125 mg Documented by: Clonidine HCl (Clonidine 0.1 Mg Tab) 0.2 mg PO ONETIME ONE Stop: 12/21/20 20:25 Last Admin: 12/21/20 21:12 Dose: 0.2 mg Documented by: Diphenhydramine HCl (Diphenhydramine 50 Mg/Ml Sdv) 50 mg IVPUSH ASDIRECTED PRN PRN Reason: hypersensitivity reaction Epinephrine HCl (Epinephrine 1 Mg/Ml Sdv) 0.3 mg IM ASDIRECTED PRN PRN Reason: hypersensitivity reaction Famotidine (Famotidine 20 Mg/2 Ml Sdv) 20 mg IVPUSH ASDIRECTED PRN PRN Reason: hypersensitivity reaction Sodium Chloride (Normal Saline) 1,000 mls @ 1,000 mls/hr IV .[facility] Last Admin: 12/18/20 10:05 Dose: 1,000 mls/hr Documented by: Bamlanivimab 700 mg/Etesevimab 1,400 mg/ Sodium Chloride 160 mls @ 310 mls/hr IV ONETIME ONE Stop: 12/18/20 10:25 Last Admin: 12/18/20 10:25 Dose: 310 mls/hr Documented by: Azithromycin 500 mg/ Sodium (Chloride) 250 mls @ 250 mls/hr IV Q24H KAYE Last Admin: 12/21/20 16:38 Dose: 250 mls/hr Documented by: Remdesivir 100 mg/ Sodium (Chloride) 100 mls @ 100 mls/hr IV Q24H [facility] Stop: 12/22/20 17:59 Last Admin: 12/21/20 17:53 Dose: 100 mls/hr Documented by: Remdesivir 200 mg/ Sodium (Chloride) 250 mls @ 250 mls/hr IV ONETIME ONE Stop: 12/18/20 17:59 Last Admin: 12/18/20 16:53 Dose: 250 mls/hr Documented by: Sodium Chloride (Normal Saline) 1,000 mls @ 100 mls/hr IV ASDIRECTED [facility] Last Admin: 12/18/20 16:54 Dose: 100 mls/hr Documented by: Magnesium Sulfate 2 gm/ Premix 50 mls @ 25 mls/hr IV ONETIME ONE Stop: 12/22/20 10:18 Last Admin: 12/22/20 09:16 Dose: 25 mls/hr Documented by: Insulin Human Regular (Insulin Regular, Human 100 Units/Ml 3 Ml Vial) 0 unit SUBCUT BIDAC [facility]; Protocol Last Admin: 12/18/20 16:57 Dose: Not Given Documented by: Metformin HCl (Metformin 500 Mg Tab) 500 mg PO BIDMEALS [facility] Last Admin: 12/20/20 06:04 Dose: 500 mg Documented by: Methylprednisolone Sodium Succinate (Methylprednisolone Sodium Succinate 125 Mg/2 Ml Sdv) 125 mg IVPUSH ASDIRECTED PRN PRN Reason: hypersensitivity reaction Morphine Sulfate (Morphine 2 Mg/Ml Syringe) 2 mg IVPUSH Q2H PRN PRN Reason: Pain (severe 7-10) Stop: 12/19/20 15:43 Ondansetron HCl (Ondansetron 4 Mg/2 Ml Sdv) 4 mg IVPUSH ONETIME ONE Stop: 12/18/20 09:54 Last Admin: 12/18/20 10:06 Dose: 4 mg Documented by: - Patient Data Lab Results Last 24 hrs: Laboratory Results - last 24 hr 12/21/20 12/22/20 12/22/20 Range/Units 16:46 05:18 05:18 WBC 4.58 (3.98-10.04) K/mm3 RBC 3.93 L (3.98-5.22) M/mm3 Hgb 11.5 (11.2-15.7) gm/dl Hct 35.4 (34.1-44.9) % MCV 90.1 (79.4-94.8) fl MCH 29.3 (25.6-32.2) pg MCHC 32.5 (32.2-35.5) g/dl RDW Std Deviation 43.7 (36.4-46.3) fL Plt Count 260 (182-369) K/mm3 MPV 9.0 L (9.4-12.3) fl Neut % (Auto) 62.2 (34.0-71.1) % Lymph % (Auto) 19.9 (19.3-51.7) % Bradford % (Auto) 17.7 H (4.7-12.5) % Eos % (Auto) 0 L (0.7-5.8) Baso % (Auto) 0.0 L (0.1-1.2) % Neut # (Auto) 2.85 (1.56-6.13) K/mm3 Lymph # (Auto) 0.91 L (1.18-3.74) K/mm3 Bradford # (Auto) 0.81 H (0.24-0.36) K/mm3 Eos # (Auto) 0.00 L (0.04-0.36) K/mm3 Baso # (Auto) 0.00 L (0.01-0.08) K/mm3 Manual Slide Review Normal smear Sodium 135 L (136-145) mEq/L Potassium 3.6 (3.5-5.1) mEq/L Chloride 98 (98-107) mEq/L Carbon Dioxide 32 (21-32) mEq/L Anion Gap 8.6 (5-15) BUN 11 (7-18) mg/dL Creatinine 0.7 (0.55-1.02) mg/dL Est Cr Clr Drug Dosing 54.92 mL/min Estimated GFR (MDRD) > 60 (>60) mL/min BUN/Creatinine Ratio 15.7 (14-18) Glucose 134 H (70-99) mg/dL POC Glucose 250 H (70-99) mg/dL Calcium 8.5 (8.5-10.1) mg/dL Magnesium 1.6 L (1.8-2.4) mg/dL Total Bilirubin 0.2 (0.2-1.0) mg/dL AST 37 (15-37) U/L ALT 61 H (14-59) U/L Alkaline Phosphatase 57 (46-116) U/L Total Protein 5.6 L (6.4-8.2) g/dl Albumin 2.7 L (3.4-5.0) g/dl Globulin 2.9 gm/dL Albumin/Globulin Ratio 0.9 L (1-2) 12/22/20 12/22/20 Range/Units 06:55 11:08 WBC (3.98-10.04) K/mm3 RBC (3.98-5.22) M/mm3 Hgb (11.2-15.7) gm/dl Hct (34.1-44.9) % MCV (79.4-94.8) fl MCH (25.6-32.2) pg MCHC (32.2-35.5) g/dl RDW Std Deviation (36.4-46.3) fL Plt Count (182-369) K/mm3 MPV (9.4-12.3) fl Neut % (Auto) (34.0-71.1) % Lymph % (Auto) (19.3-51.7) % Bradford % (Auto) (4.7-12.5) % Eos % (Auto) (0.7-5.8) Baso % (Auto) (0.1-1.2) % Neut # (Auto) (1.56-6.13) K/mm3 Lymph # (Auto) (1.18-3.74) K/mm3 Bradford # (Auto) (0.24-0.36) K/mm3 Eos # (Auto) (0.04-0.36) K/mm3 Baso # (Auto) (0.01-0.08) K/mm3 Manual Slide Review Sodium (136-145) mEq/L Potassium (3.5-5.1) mEq/L Chloride (98-107) mEq/L Carbon Dioxide (21-32) mEq/L Anion Gap (5-15) BUN (7-18) mg/dL Creatinine (0.55-1.02) mg/dL Est Cr Clr Drug Dosing mL/min Estimated GFR (MDRD) (>60) mL/min BUN/Creatinine Ratio (14-18) Glucose (70-99) mg/dL POC Glucose 112 H 143 H (70-99) mg/dL Calcium (8.5-10.1) mg/dL Magnesium (1.8-2.4) mg/dL Total Bilirubin (0.2-1.0) mg/dL AST (15-37) U/L ALT (14-59) U/L Alkaline Phosphatase (46-116) U/L Total Protein (6.4-8.2) g/dl Albumin (3.4-5.0) g/dl Globulin gm/dL Albumin/Globulin Ratio (1-2) Result Diagrams: 12/22/20 05:18 12/22/20 05:18 Sepsis Event Note - Focused Exam Vital Signs: Vital Signs Temp Pulse Resp BP Pulse Ox Pulse Ox Pulse Ox 12/22/20 09:13 65 158/70 H 12/22/20 09:11 98.4 F 65 16 158/70 H 93 L 12/22/20 08:49 85 L 12/22/20 08:43 85 L 12/22/20 08:40 90 L 12/22/20 08:30 82 L 12/22/20 03:51 98.4 F 65 20 102/81 93 L 12/22/20 00:23 97.7 F 66 16 137/62 93 L - Problem List & Annotations (1) Acute respiratory failure due to COVID-19 SNOMED Code(s): 424575461 Code(s): U07.1 - COVID-19; J96.00 - ACUTE RESPIRATORY FAILURE, UNSP W HYPOXIA OR HYPERCAPNIA Status: Acute Priority: High Current Visit: Yes (2) Hyponatremia SNOMED Code(s): 32994085 Code(s): E87.1 - HYPO-OSMOLALITY AND HYPONATREMIA Status: Acute Priority: High Current Visit: Yes (3) Hypoxia SNOMED Code(s): 197135153 Code(s): R09.02 - HYPOXEMIA Status: Acute Priority: High Current Visit: Yes (4) Diabetes mellitus type 2 in nonobese SNOMED Code(s): 696767411 Code(s): E11.9 - TYPE 2 DIABETES MELLITUS WITHOUT COMPLICATIONS Status: Chronic Priority: High Current Visit: Yes (5) Hypertension SNOMED Code(s): 53836768 Code(s): I10 - ESSENTIAL (PRIMARY) HYPERTENSION Status: Chronic Priority: High Current Visit: Yes Qualifiers: Hypertension type: primary hypertension Qualified Code(s): I10 - Essential (primary) hypertension - Problem List Review Problem List Initiated/Reviewed/Updated: Yes - Plan Plan:: Patient was seen, examined, and evaluated personally and I agree with the above findings, assessment, and plan.
--- NOTE | 2020-12-22 13:58 | PCM.DCSUM1 ---
Discharge Summary - Hospital Course HPI Initial Comments: Patient is a 75-year-old lady who had presented to the emergency department with shortness of breath, generalized weakness and nausea. She tested positive for COVID-19 4 days ago. The patient does not normally use oxygen at home. The patient says that she has a loss of appetite. She has had some fever and chills. Patient also has a history of diabetes, hypertension and COPD. Patient had not been vaccinated. Patient had no specific aggravating or relieving factors. The patient has no other complaints. Assessment/Plan Comment:: The patient is a 75-year-old lady who had been admitted primarily out of concern for acute respiratory failure with hypoxia associated with COVID-19. The patient was also noted to have a sodium of 117 mEq/L and this will require slow correction. The patient admits that she has been only drinking fluids for the past several days and this is likely a dilution the patient also has a history of anxiety she has been started on her home dose of Xanax 0.25 mg p.o. daily. Because of the patient's history of COPD I have elected to place the patient on a azithromycin as treatment for possible COPD exacerbation as well. She is on dexamethasone 6 mg p.o. daily. I have also started the patient on remdesivir. This will be 100 mg IV starting tomorrow. The patient will have DVT prophylaxis with the use of Lovenox 40 mg subcutaneous daily. She is to have a carb constant diet as tolerated. I have also placed the patient on insulin sliding scale low-dose. She is on Metformin and this will be continued as she did not have CT scan of her chest with contrast. The patient should be appropriate for discharge upon completion of medications. Diagnosis: Stroke: No - Discharge Data Discharge Date: 12/22/20 Discharge Disposition: Home, Self-Care 01 Condition: Good - Referral to Home Health Primary Care Physician: Leah Hay MD - Discharge Diagnosis/Problem(s) (1) Acute respiratory failure due to COVID-19 SNOMED Code(s): 098226430 ICD Code: U07.1 - COVID-19; J96.00 - ACUTE RESPIRATORY FAILURE, UNSP W HYPOXIA OR HYPERCAPNIA Status: Acute Priority: High Current Visit: Yes (2) Hyponatremia SNOMED Code(s): 61695019 ICD Code: E87.1 - HYPO-OSMOLALITY AND HYPONATREMIA Status: Acute Priority: High Current Visit: Yes (3) Hypoxia SNOMED Code(s): 274494483 ICD Code: R09.02 - HYPOXEMIA Status: Acute Priority: High Current Visit: Yes (4) Diabetes mellitus type 2 in nonobese SNOMED Code(s): 644291752 ICD Code: E11.9 - TYPE 2 DIABETES MELLITUS WITHOUT COMPLICATIONS Status: Chronic Priority: High Current Visit: Yes (5) Hypertension SNOMED Code(s): 09627906 ICD Code: I10 - ESSENTIAL (PRIMARY) HYPERTENSION Status: Chronic Priority: High Current Visit: Yes Qualifiers: Hypertension type: primary hypertension Qualified Code(s): I10 - Essential (primary) hypertension - Patient Summary/Data Hospital Course: Plan:: The patient is a 75-year-old lady who had been admitted primarily out of concern for acute respiratory failure with hypoxia associated with COVID-19. The patient was also noted to have a sodium of 117 mEq/L and this will require slow correction. The patient admits that she has been only drinking fluids for the past several days and this is likely a dilution the patient also has a history of anxiety she has been started on her home dose of Xanax 0.25 mg p.o. daily. Because of the patient's history of COPD I have elected to place the patient on a azithromycin as treatment for possible COPD exacerbation as well. She is on dexamethasone 6 mg p.o. daily. I have also started the patient on remdesivir. This will be 100 mg IV starting tomorrow. The patient will have DVT prophylaxis with the use of Lovenox 40 mg subcutaneous daily. She is to have a carb constant diet as tolerated. I have also placed the patient on insulin sliding scale low-dose. She is on Metformin and this will be continued as she did not have CT scan of her chest with contrast. The patient should be appropriate for discharge upon completion of medications. 12/19/2020 Patient is a 75-year-old lady who had been admitted due to acute respiratory failure due to COVID-19 pneumonia. She was also admitted for hyponatremia which was thought to be due to dilutional effect. The patient has been fluid resuscitated. She has had some improvement of her hyponatremia. The patient has been able to eat more and her sodium is almost normalized. The patient will continue on her diabetic diet as tolerated. She is also on Metformin and this will continue. The patient has sliding scale insulin low-dose. She is to have Accu-Cheks before meals and at bedtime. Repeat laboratory studies have been ordered for the morning. The patient is using a azithromycin for bacterial superinfection and possible COPD exacerbation and this may be discontinued soon. She is on dexamethasone and remdesivir in both these will continue and she will need to be on dexamethasone after discharge. Repeat laboratory studies have b een ordered. The patient has been encouraged to ambulate. 12/20/2020 The patient is a 75-year-old lady who is still in hospitalization for continuation of her remdesivir treatment for her COVID-19. The patient will continue on oxygen titrated to keep her saturations around 92%. The patient is tolerating her diabetic diet. She is on Accu-Cheks and sliding scale low-dose insulin. Repeat laboratory studies have been ordered for the morning. The patient will be continued on her azithromycin and this should be discontinued tomorrow. She has been encouraged to ambulate. The patient's previously critical sodium of 117 mmol/L have improved although still low at 134. This is likely the patient's baseline. She should be appropriate for discharge tomorrow after completion of remdesivir. 12/21/2020 75-year-old lady who had been admitted to acute hospitalization secondary to COVID-19. The patient has been breathing better. We will titrate her oxygen down to keep her saturations around 92%. The patient should finish her last dose of remdesivir tomorrow. She has been tolerating this well. The patient also has a history of COPD and she is on a azithromycin and this should be able to be discontinued tomorrow or upon discharge. She also has been encouraged to ambulate. The patient is anticoagulated with Lovenox 40 mg subcutaneously daily. Continue with the patient's diabetic diet and insulin sliding scale on low-dose insulin. The patient will need to be discharged on dexamethasone for further treatment. Initially the patient did have a sodium of 117 mmol/L and this is almost normalized today. Repeat laboratory studies have been ordered. The patient should be appropriate for her discharge when her oxygen demands have improved. 12/22/2020 Carlita is a 75yo female with COPD, T2DM, essential hypertension, and anxiety admitted for hospitalization secondary to COVID-19. She is breathing and feeling better. She is able to ambulate to the bathroom and will have family support at home. Pending continued improvement and final remdesivir dose, it will be appropriate to discharge her to home. COVID-19 hypoxemia and respiratory distress * continue oral dexamethasone for 3 more days Or until off O2 * final dose of Remdesivir at 1500 today * discontinue azithromycin * continue on 1L oxygen to keep saturations around 92% * plan to discharge to home on oxygen after evening Remdesivir dose Essential Hypertension * continue atenolol, furosemide, potassium T2DM * continue sliding scale insulin on low-dose insulin while hospitalized * diabetic diet Electrolyte disturbances * hyponatremia is almost normalized to 135 * replace magnesium for hypomagnesemia of 1.6 VTE prophylaxis * continue 40mg subcutaneous Lovenox while hospitalized Code status: Full Code - Patient Instructions Diet: Diabetic Diet Driving: Do Not Drive Showering/Bathing: May Shower Notify Provider of: Fever (Shortness of breath) Other/Special Instructions: He will be going home on 1 L of O2 via nasal cannula per minute. Also, dexamethasone 6 mg for up to 3 more days. These can increase your blood sugars so keep an eye on your blood sugars as well as your oxygen sats. Follow-up with your primary care next week. - Discharge Plan *PRESCRIPTION DRUG MONITORING PROGRAM REVIEWED*: No *COPY OF PRESCRIPTION DRUG MONITORING REPORT IN PATIENT ROSALINE: No Prescriptions/Med Rec: dexAMETHasone [Dexamethasone] 6 mg PO DAILY #5 tablet Home Medications: Home Meds ALPRAZolam [Alprazolam] 0.25 mg PO DAILY PRN 01/28/16 [History] Albuterol [Proair HFA] 2 puff INH Q4H PRN 01/28/16 [History] Aspirin 81 mg PO DAILY 01/28/16 [History] Potassium Chloride [Klor-Con M20] 20 meq PO DAILY 01/28/16 [History] atenoloL [Atenolol] 25 mg PO DAILY 01/28/16 [History] Ascorbate Calcium [Vitamin C] 500 mg PO DAILY 12/18/20 [History] Ergocalciferol (Vitamin D2) [Vitamin D2] 50,000 unit PO WEEKLY 12/18/20 [History] Fluticasone/Vilanterol [Breo Ellipta 200-25 MCG Inhalation Kit] 1 puff INH DAILY 12/18/20 [History] Furosemide 20 mg PO DAILY 12/18/20 [History] Ipratropium/Albuterol Sulfate [Iprat-Albut 0.5-3(2.5) mg/3 ml] 1 unit INH Q4H PRN 12/18/20 [History] Multivitamin 1 tab PO DAILY 12/18/20 [History] metFORMIN HCl [Metformin HCl] 500 mg PO BIDMEALS 12/18/20 [History] dexAMETHasone [Dexamethasone] 6 mg PO DAILY #5 tablet 12/22/20 [Rx] Oxygen Therapy Mode: Nasal Cannula Oxygen Flow Rate (L/min): 1 Maintain SpO2% greater than: 90 Patient Handouts: COVID-19, Home Oxygen Use, Adult, COVID-19: How to Protect Yourself and Others - CDC, Sepsis, Self Care, Adult Forms: ED Department Discharge Referrals: Leah Hay MD [Primary Care Provider] - 12/30/20 2:00 pm (Please arrive at 1:40 for check in.) - Discharge Summary/Plan Comment DC Time >30 min.: Yes Total # of Minutes for Discharge Time: 45 minutes - General Info Date of Service: 12/22/20 Admission Dx/Problem (Free Text: Admission Diagnosis/Problem Admission Diagnosis/Problem acute respiratory failure associated with COVID-19. Subjective Update: Carlita is a 75yo female with hypertension, type 2 diabetes mellitus, COPD and anxiety admitted on 12/18/2020 for hypoxemia and respiratory distress secondary to COVID-19. She tested positive on 12/15/2020. She has had symptoms of headache, cough, diarrhea and nausea, all of which have since resolved. She states that she is feeling much better today and would like to go home. She has been able to ambulate to the bathroom without assistance. She has 5 steps up to her home and uses a tub shower. She has family support who will likely be providing assistance for her. - Patient Data Vitals - Most Recent: Last Vital Signs Temp 98.4 F 12/22/20 09:11 Pulse 65 12/22/20 09:13 Resp 16 12/22/20 09:11 BP 158/70 H 12/22/20 09:13 Pulse Ox 93 L 12/22/20 09:11 Weight - Most Recent: 165 lb 9.6 oz I&O - Last 24 hours: Intake & Output 12/21/20 12/22/20 12/22/20 22:59 06:59 14:59 Intake Total 400 1432 Output Total 500 900 Balance -100 532 Lab Results - Last 24 hrs: Laboratory Results - last 24 hr 12/21/20 12/22/20 12/22/20 Range/Units 16:46 05:18 05:18 WBC 4.58 (3.98-10.04) K/mm3 RBC 3.93 L (3.98-5.22) M/mm3 Hgb 11.5 (11.2-15.7) gm/dl Hct 35.4 (34.1-44.9) % MCV 90.1 (79.4-94.8) fl MCH 29.3 (25.6-32.2) pg MCHC 32.5 (32.2-35.5) g/dl RDW Std Deviation 43.7 (36.4-46.3) fL Plt Count 260 (182-369) K/mm3 MPV 9.0 L (9.4-12.3) fl Neut % (Auto) 62.2 (34.0-71.1) % Lymph % (Auto) 19.9 (19.3-51.7) % Nance % (Auto) 17.7 H (4.7-12.5) % Eos % (Auto) 0 L (0.7-5.8) Baso % (Auto) 0.0 L (0.1-1.2) % Neut # (Auto) 2.85 (1.56-6.13) K/mm3 Lymph # (Auto) 0.91 L (1.18-3.74) K/mm3 Nance # (Auto) 0.81 H (0.24-0.36) K/mm3 Eos # (Auto) 0.00 L (0.04-0.36) K/mm3 Baso # (Auto) 0.00 L (0.01-0.08) K/mm3 Manual Slide Review Normal smear Sodium 135 L (136-145) mEq/L Potassium 3.6 (3.5-5.1) mEq/L Chloride 98 (98-107) mEq/L Carbon Dioxide 32 (21-32) mEq/L Anion Gap 8.6 (5-15) BUN 11 (7-18) mg/dL Creatinine 0.7 (0.55-1.02) mg/dL Est Cr Clr Drug Dosing 54.92 mL/min Estimated GFR (MDRD) > 60 (>60) mL/min BUN/Creatinine Ratio 15.7 (14-18) Glucose 134 H (70-99) mg/dL POC Glucose 250 H (70-99) mg/dL Calcium 8.5 (8.5-10.1) mg/dL Magnesium 1.6 L (1.8-2.4) mg/dL Total Bilirubin 0.2 (0.2-1.0) mg/dL AST 37 (15-37) U/L ALT 61 H (14-59) U/L Alkaline Phosphatase 57 (46-116) U/L Total Protein 5.6 L (6.4-8.2) g/dl Albumin 2.7 L (3.4-5.0) g/dl Globulin 2.9 gm/dL Albumin/Globulin Ratio 0.9 L (1-2) 12/22/20 12/22/20 Range/Units 06:55 11:08 WBC (3.98-10.04) K/mm3 RBC (3.98-5.22) M/mm3 Hgb (11.2-15.7) gm/dl Hct (34.1-44.9) % MCV (79.4-94.8) fl MCH (25.6-32.2) pg MCHC (32.2-35.5) g/dl RDW Std Deviation (36.4-46.3) fL Plt Count (182-369) K/mm3 MPV (9.4-12.3) fl Neut % (Auto) (34.0-71.1) % Lymph % (Auto) (19.3-51.7) % Nance % (Auto) (4.7-12.5) % Eos % (Auto) (0.7-5.8) Baso % (Auto) (0.1-1.2) % Neut # (Auto) (1.56-6.13) K/mm3 Lymph # (Auto) (1.18-3.74) K/mm3 Nance # (Auto) (0.24-0.36) K/mm3 Eos # (Auto) (0.04-0.36) K/mm3 Baso # (Auto) (0.01-0.08) K/mm3 Manual Slide Review Sodium (136-145) mEq/L Potassium (3.5-5.1) mEq/L Chloride (98-107) mEq/L Carbon Dioxide (21-32) mEq/L Anion Gap (5-15) BUN (7-18) mg/dL Creatinine (0.55-1.02) mg/dL Est Cr Clr Drug Dosing mL/min Estimated GFR (MDRD) (>60) mL/min BUN/Creatinine Ratio (14-18) Glucose (70-99) mg/dL POC Glucose 112 H 143 H (70-99) mg/dL Calcium (8.5-10.1) mg/dL Magnesium (1.8-2.4) mg/dL Total Bilirubin (0.2-1.0) mg/dL AST (15-37) U/L ALT (14-59) U/L Alkaline Phosphatase (46-116) U/L Total Protein (6.4-8.2) g/dl Albumin (3.4-5.0) g/dl Globulin gm/dL Albumin/Globulin Ratio (1-2) Med Orders - Current: Current Medications Acetaminophen (Acetaminophen 325 Mg Tab) 650 mg PO Q4H PRN PRN Reason: Pain (Mild 1-3)/fever Albuterol/Ipratropium (Albuterol/Ipratropium 3.0-0.5 Mg/3 Ml Neb Soln) 3 ml NEB Q4H PRN PRN Reason: Shortness Of Breath/wheezing Last Admin: 12/21/20 09:08 Dose: 3 ml Documented by: Alprazolam (Alprazolam 0.25 Mg Tab) 0.25 mg PO DAILY PRN PRN Reason: Anxiety Last Admin: 12/21/20 01:59 Dose: 0.125 mg Documented by: Artificial Tears (Carboxymethylcellulose Sodium 1% Ophth Gel 15 Ml Bottle) 0 ml EYEBOTH Q6H PRN PRN Reason: Dry Eyes Last Admin: 12/21/20 21:13 Dose: 1 drop Documented by: Aspirin (Aspirin 81 Mg Tab.Chew) 81 mg PO DAILY [facility] Last Admin: 12/22/20 09:13 Dose: 81 mg Documented by: Atenolol (Atenolol 25 Mg Tab) 25 mg PO DAILY [facility] Last Admin: 12/22/20 09:13 Dose: 25 mg Documented by: Dexamethasone (Dexamethasone 4 Mg Tab) 6 mg PO DAILY [facility] Last Admin: 12/22/20 09:13 Dose: 6 mg Documented by: Docusate Sodium (Docusate Sodium 100 Mg Cap) 100 mg PO BID PRN PRN Reason: Constipation Enoxaparin Sodium (Enoxaparin 40 Mg/0.4 Ml Syringe) 40 mg SUBCUT DAILY [facility] Last Admin: 12/22/20 09:14 Dose: 40 mg Documented by: Furosemide (Furosemide 20 Mg Tab) 20 mg PO DAILY [facility] Last Admin: 12/22/20 09:13 Dose: 20 mg Documented by: Remdesivir 100 mg/ Sodium (Chloride) 100 mls @ 100 mls/hr IV ONETIME ONE Stop: 12/22/20 15:59 Insulin Human Regular (Insulin Regular, Human 100 Units/Ml 3 Ml Vial) 0 unit SUBCUT BID@0700,1700 [facility]; Protocol Last Admin: 12/22/20 07:58 Dose: Not Given Documented by: Mometasone Furoate/Formoterol Fumar (Formoterol/Mometasone 200-5 Mcg 8.8 Gm Inhaler) 2 puff IH BID [facility] Last Admin: 12/22/20 08:39 Dose: 2 puff Documented by: Ondansetron HCl (Ondansetron 4 Mg Tab.Dis) 4 mg PO Q4H PRN PRN Reason: nausea, able to take PO Oxycodone HCl (Oxycodone 5 Mg Tab) 5 mg PO Q4H PRN PRN Reason: Pain (moderate 4-6) Potassium Chloride (Potassium Chloride 20 Meq Tab.Er) 20 meq PO DAILY [facility] Last Admin: 12/22/20 09:13 Dose: 20 meq Documented by: Sodium Chloride (Sodium Chloride 0.9% 10 Ml Syringe) 10 ml FLUSH ASDIRECTED PRN PRN Reason: Keep Vein Open Sodium Chloride (Sodium Chloride 0.9% 10 Ml Syringe) 30 ml FLUSH ASDIRECTED [facility] Discontinued Medications Albuterol/Ipratropium (Albuterol/Ipratropium 3.0-0.5 Mg/3 Ml Neb Soln) 3 ml NEB ONETIME ONE Stop: 12/18/20 09:55 Last Admin: 12/18/20 10:07 Dose: 3 ml Documented by: Alprazolam (Alprazolam 0.25 Mg Tab) 0.25 mg PO ONETIME ONE Stop: 12/21/20 22:54 Last Admin: 12/21/20 23:12 Dose: 0.125 mg Documented by: Clonidine HCl (Clonidine 0.1 Mg Tab) 0.2 mg PO ONETIME ONE Stop: 12/21/20 20:25 Last Admin: 12/21/20 21:12 Dose: 0.2 mg Documented by: Diphenhydramine HCl (Diphenhydramine 50 Mg/Ml Sdv) 50 mg IVPUSH ASDIRECTED PRN PRN Reason: hypersensitivity reaction Epinephrine HCl (Epinephrine 1 Mg/Ml Sdv) 0.3 mg IM ASDIRECTED PRN PRN Reason: hypersensitivity reaction Famotidine (Famotidine 20 Mg/2 Ml Sdv) 20 mg IVPUSH ASDIRECTED PRN PRN Reason: hypersensitivity reaction Sodium Chloride (Normal Saline) 1,000 mls @ 1,000 mls/hr IV .BOLUS [facility] Last Admin: 12/18/20 10:05 Dose: 1,000 mls/hr Documented by: Bamlanivimab 700 mg/Etesevimab 1,400 mg/ Sodium Chloride 160 mls @ 310 mls/hr IV ONETIME ONE Stop: 12/18/20 10:25 Last Admin: 12/18/20 10:25 Dose: 310 mls/hr Documented by: Azithromycin 500 mg/ Sodium (Chloride) 250 mls @ 250 mls/hr IV Q24H [facility] Last Admin: 12/21/20 16:38 Dose: 250 mls/hr Documented by: Remdesivir 100 mg/ Sodium (Chloride) 100 mls @ 100 mls/hr IV Q24H [facility] Stop: 12/22/20 17:59 Last Admin: 12/21/20 17:53 Dose: 100 mls/hr Documented by: Remdesivir 200 mg/ Sodium (Chloride) 250 mls @ 250 mls/hr IV ONETIME ONE Stop: 12/18/20 17:59 Last Admin: 12/18/20 16:53 Dose: 250 mls/hr Documented by: Sodium Chloride (Normal Saline) 1,000 mls @ 100 mls/hr IV ASDIRECTED [facility] Last Admin: 12/18/20 16:54 Dose: 100 mls/hr Documented by: Magnesium Sulfate 2 gm/ Premix 50 mls @ 25 mls/hr IV ONETIME ONE Stop: 12/22/20 10:18 Last Admin: 12/22/20 09:16 Dose: 25 mls/hr Documented by: Insulin Human Regular (Insulin Regular, Human 100 Units/Ml 3 Ml Vial) 0 unit SUBCUT BIDAC [facility]; Protocol Last Admin: 12/18/20 16:57 Dose: Not Given Documented by: Metformin HCl (Metformin 500 Mg Tab) [facility] Last Admin: 12/20/20 06:04 Dose: 500 mg Documented by: Methylprednisolone Sodium Succinate (Methylprednisolone Sodium Succinate 125 Mg/2 Ml Sdv) 125 mg IVPUSH ASDIRECTED PRN PRN Reason: hypersensitivity reaction Morphine Sulfate (Morphine 2 Mg/Ml Syringe) 2 mg IVPUSH Q2H PRN PRN Reason: Pain (severe 7-10) Stop: 12/19/20 15:43 Ondansetron HCl (Ondansetron 4 Mg/2 Ml Sdv) 4 mg IVPUSH ONETIME ONE Stop: 12/18/20 09:54 Last Admin: 12/18/20 10:06 Dose: 4 mg Documented by: Comments:: Please see today's previous progress note.
[2020-12-22] MEDS ORDERED: REMDESIVIR 100 MG in Sodium Chloride 0.9% 100 ML IV ONE (15:00)
== END 2020-12-22 15:44 | disposition home or self-care (01) | DRG 177 ==
LOC: JD.ED 09:21 → JD.MS 14:17
PROVIDERS: ADMIT Internal Medicine; ATTEND Internal Medicine
PROC: XW033E5 Introduction of Remdesivir Anti-infective into Peripheral Vein, Percutaneous Approach, New Technology Group 5 (ICD-10-PCS; principal; 2020-12-18)
PROC: 3E0333Z Introduction of Anti-inflammatory into Peripheral Vein, Percutaneous Approach (ICD-10-PCS; 2020-12-18)
PROC: XW033F6 Introduction of Bamlanivimab Monoclonal Antibody into Peripheral Vein, Percutaneous Approach, New Technology Group 6 (ICD-10-PCS; 2020-12-18)
DX: U07.1 COVID-19 (principal); J96.01 Acute respiratory failure with hypoxia; R09.02 Hypoxemia; Z88.2 Allergy status to sulfonamides; J12.82 Pneumonia due to coronavirus disease 2019; E87.1 Hypo-osmolality and hyponatremia; J44.0 Chronic obstructive pulmonary disease with (acute) lower respiratory infection; E11.9 Type 2 diabetes mellitus without complications; Z79.82 Long term (current) use of aspirin; Z79.899 Other long term (current) drug therapy; I10 Essential (primary) hypertension; J44.9 Chronic obstructive pulmonary disease, unspecified; I11.0 Hypertensive heart disease with heart failure; I50.9 Heart failure, unspecified; F41.9 Anxiety disorder, unspecified; Z79.4 Long term (current) use of insulin
CPT/HCPCS: 36415; 71045; 80053; 83605; 85025; 85379; 85610; 85730; 86140; 94640; 96374; 99285; J2405; J7030; M0245; Q0245 ×2; 82947; 83036; 83735; 94762; 99223; 99232; 99239; 99283; A9270-GY; J0456; J1650; J1815-GY; J3475; J7050; J7620-GY; J8540

== ENCOUNTER 2024-08-26 21:56 | Emergency (ER) | payer MEDICARE, OTHER ==
[2024-08-26 22:43] VITALS: BP 181/79; PULSE 85
== END 2024-08-26 23:17 | disposition home or self-care (01) ==
LOC: JD.ED 21:56
DX: J96.11 Chronic respiratory failure with hypoxia (principal); I11.0 Hypertensive heart disease with heart failure; I50.9 Heart failure, unspecified; F41.9 Anxiety disorder, unspecified; J44.9 Chronic obstructive pulmonary disease, unspecified; E11.9 Type 2 diabetes mellitus without complications; Z86.16 Personal history of COVID-19; Z88.2 Allergy status to sulfonamides; Z79.82 Long term (current) use of aspirin; Z79.899 Other long term (current) drug therapy; Z79.84 Long term (current) use of oral hypoglycemic drugs; Z99.81 Dependence on supplemental oxygen
CPT/HCPCS: 99283; A9270